=== PATIENT | male | born 1930 | race Caucasian/White ===

== ENCOUNTER 2016-05-27 16:17 | Emergency (ER) | payer OTHER ==
[~2016-05-27] VITALS: Ht 170.2 cm; Wt 73.5 kg
[2016-05-27 16:19] VITALS: BP 158/88
[2016-05-27] MEDS ORDERED: VENLAFAXINE PO (16:36)
[2016-05-27] MEDS ORDERED: LEVOTHYROXINE PO (16:36)
[2016-05-27] MEDS ORDERED: VIGA0.02 OD (17:08)
[2016-05-27] MEDS ORDERED: PROPARACAINE 0.5% OPHTH SOL 15ML OD ONE (17:15)
[2016-05-27] MEDS ORDERED: FLUORESCEIN OPHTH 1 MG STRIP OD ONE (17:15)
[2016-05-27] MEDS ORDERED: TYLE325T5 PO (17:25)
== END 2016-05-27 17:52 | disposition home or self-care (01) ==
LOC: M ED 17:40
DX: S05.01XA Injury of conjunctiva and corneal abrasion without foreign body, right eye, initial encounter (principal); X58.XXXA Exposure to other specified factors, initial encounter; Y92.099 Unspecified place in other non-institutional residence as the place of occurrence of the external cause; Y93.89 Activity, other specified; Y99.9 Unspecified external cause status

== ENCOUNTER → 2016-08-10 | Outpatient (CLI) | payer OTHER ==
[~2016-08-10] MED LIST: LEVOTHYROXINE PO; TYLE325T5 PO; VENLAFAXINE PO; VIGA0.02 OD
[2016-08-10 13:20] LABS: BASO % 0.5 % (0.0-1.0); EOS # 0.1 K/mm3 (0.0-0.50); EOS % 1.6 % (0.0-3.0); LARGE UNSTAINED CELL # 0.1 K/mm3 (0.0-0.4); LARGE UNSTAINED CELL % 1.2 % (0.0-4.0); LYMPH # 2.6 K/mm3 (1.5-4.5); LYMPH % 29.6 % (24.0-44.0); MEAN CORPUSCULAR HEMOGLOBIN 29.9 pg (27.0-33.0); MEAN CORPUSCULAR HGB CONC 33.6 g/dl (32.0-36.5); MEAN CORPUSCULAR VOLUME 88.9 fl (80.0-96.0); MONO # 0.5 K/mm3 (0.0-0.8); MONO % 5.5 % (0.0-5.0); NEUTROPHILS # 5.4 K/mm3 (1.8-7.7); NEUTROPHILS % 61.5 % (36.0-66.0); PLATELET COUNT, AUTOMATED 174 k/mm3 (150-450); RED CELL DISTRIBUTION WIDTH 13.3 % (11.5-14.5); WHITE BLOOD COUNT 8.8 K/mm3 (4.0-10.0)
[2016-08-10 13:59] LABS: ALBUMIN 3.8 GM/DL (3.2-5.2); ALBUMIN/GLOBULIN RATIO 1.31 (1.00-1.93); BILIRUBIN,TOTAL 0.6 MG/DL (0.2-1.0); CALCIUM LEVEL 8.7 MG/DL (8.8-10.2); CREATININE FOR GFR 1.55 MG/DL (0.70-1.30); FREE T4 0.92 NG/DL (0.76-1.46); GLOMERULAR FILTRATION RATE 45.4 (>35); POTASSIUM SERUM 3.8 MEQ/L (3.5-5.1); TOTAL PROTEIN 6.7 GM/DL (6.4-8.2)
== END ==
LOC: M WUC 08:48
PROVIDERS: ATTEND Emergency Medicine
DX: E03.9 Hypothyroidism, unspecified (principal)

== ENCOUNTER 2017-01-01 14:05 | Emergency (ER) | payer OTHER ==
[~2017-01-01] VITALS: Ht 182.9 cm; Wt 77.3 kg
[2017-01-01] MEDS ORDERED: GENT0.2D2 OU (14:33)
[2017-01-01] MEDS ORDERED: SYSTSOL11 OU (14:33)
[2017-01-01] MEDS ORDERED: HYDR-643 PO (14:33)
[2017-01-01] MEDS ORDERED: EPIP0.3I2 INJ (14:33)
--- NOTE | 2017-01-01 15:08 | REP ---
Noncontrast brain CT: History: Syncope. Findings: Digital lateral electrotype molder radiograph is unremarkable. Bone window settings demonstrate an intact bony calvarium. There is vascular calcification in the distal carotid arteries bilaterally. Visualized paranasal sinuses are clear. No intraorbital abnormality is seen. There is diffuse moderate cerebral atrophy. There is concordant ventricular enlargement. There is no evidence of intracranial hemorrhage. No extra-axial fluid collection is seen. No mass or midline shift is seen. No acute cortical infarction is seen. There are tiny low density areas in the basal ganglia bilaterally, one on each side. These may reflect tiny old lacunar infarcts. Impression: Tiny old lacunar infarcts. Vascular calcification, diffuse moderate atrophy. No acute intracranial abnormality. Signed by Ho Unger MD 01/01/2017 05:03 P
--- NOTE | 2017-01-01 15:08 | REP ---
Portable chest x-ray: Single view. History: Syncope. Findings: EKG monitoring electrodes overlie the chest. The lungs are symmetrically aerated. Pleural angles are sharp. Right hemidiaphragm is somewhat elevated. There is some plate-like atelectasis above it in the right lower lobe. The heart is not felt to be enlarged. Pulmonary vasculature is not increased. No significant bony abnormality. Impression: Mild plate-like atelectasis in the right lower lobe above a slightly elevated right hemidiaphragm. Otherwise no acute disease. Signed by Ho Unger MD 01/01/2017 05:03 P
[2017-01-01 15:46] LABS: BASO % 0.3 % (0.0-1.0); EOS # 0.1 10^3/uL (0.0-0.50); EOS % 0.6 % (0.0-3.0); IMMATURE GRANULOCYTE % 0.8 % (0-0); LYMPH # 1.2 10^3/uL (1.5-4.5); MEAN CORPUSCULAR HEMOGLOBIN 28.5 pg (27.0-33.0); MEAN CORPUSCULAR HGB CONC 32.4 g/dl (32.0-36.5); MEAN CORPUSCULAR VOLUME 87.9 fl (80.0-96.0); MONO # 0.5 10^3/uL (0.0-0.8); NEUTROPHILS # 7.9 10^3/uL (1.8-7.7); NEUTROPHILS % 81.3 % (36.0-66.0); PLATELET COUNT, AUTOMATED 154 10^3/uL (150-450); RED CELL DISTRIBUTION WIDTH 13.3 % (11.5-14.5); WHITE BLOOD COUNT 9.8 10^3/uL (4.0-10.0)
[2017-01-01 16:18] LABS: CALCIUM LEVEL 9.2 MG/DL (8.8-10.2); CREATININE FOR GFR 1.88 MG/DL (0.70-1.30); GLOMERULAR FILTRATION RATE 36.2 (>35)
[2017-01-01] MEDS ORDERED: LEVO75TA34 PO (17:19)
[2017-01-01] MEDS ORDERED: VENL75CA47 PO (17:19)
[2017-01-01] MEDS ORDERED: NS 500 ML IV ONE (18:15)
[2017-01-01 18:57] VITALS: BP 160/86
--- NOTE | 2017-01-01 21:15 | ECGEPIP ---
Stationary ECG Study [facility] - ED Test Date: 2017-01-01 Pat Name: REINALDO MORE Department: Room: - Gender: M Base Draw Operator: kareem : 1930 Requested By: DANNIELLE Lauren Order Number: [id number] Reading MD: Olena Narayanan Measurements Intervals [place] Rate: 56 P: 70 VA: 173 QRS: -24 QRSD: 86 T: 64 QT: 422 QTc: 408 Interpretive Statements SINUS BRADYCARDIA BORDERLINE LEFT AXIS DEVIATION MODERATE VOLTAGE CRITERIA FOR LVH, CONSIDER NORMAL VARIANT NONSPECIFIC T-WAVE ABNORMALITY NO PRIOR FOR COMPARISON Electronically Signed On 01-01-2017 21:15:21 EDT by Olena Narayanan
== END 2017-01-01 21:25 | disposition home or self-care (01) ==
LOC: M ED 14:05 → EDBD 14:05 → M ED 21:25
DX: R55 Syncope and collapse (principal); R00.1 Bradycardia, unspecified; R94.31 Abnormal electrocardiogram [ECG] [EKG]; I25.2 Old myocardial infarction; F41.9 Anxiety disorder, unspecified; F03.90 Unspecified dementia, unspecified severity, without behavioral disturbance, psychotic disturbance, mood disturbance, and anxiety; Z86.73 Personal history of transient ischemic attack (TIA), and cerebral infarction without residual deficits; C63.2 Malignant neoplasm of scrotum; Z79.899 Other long term (current) drug therapy; Z91.030 Bee allergy status

== ENCOUNTER 2017-02-05 13:49 | Emergency (ER) | payer OTHER ==
[~2017-02-05] VITALS: Ht 182.9 cm; Wt 77.3 kg
[~2017-02-05 13:49] MED LIST changes: +EPIP0.3I2 INJ; +GENT0.2D2 OU; +HYDR-643 PO; +LEVO75TA34 PO; +SYSTSOL11 OU; +VENL75CA47 PO
--- NOTE | 2017-02-05 15:27 | REP ---
CT Head without contrast HISTORY: Trauma COMPARISON: 01/01/2017 Areas of decreased attenuation are present in the basal ganglia. These represent old lacunar infarctions. Areas of decreased attenuation are present in the periventricular white matter. This represents small-vessel ischemic disease. There is no intraparenchymal hemorrhage, acute infarct, mass or midline shift. The ventricular system and cortical sulci are dilated consistent with mild volume loss. There is no extra cerebral collection. There is no fracture. The visualized sinuses are clear. IMPRESSION: 1. Old bilateral basal ganglia lacunar infarctions. 2. Small vessel ischemic disease. 3. Mild volume loss. Signed by Jason Adame MD 02/05/2017 03:18 P
--- NOTE | 2017-02-05 15:28 | REP ---
Clinical: Altered mental status. Comparison: 01/01/2017 . Findings: The mediastinum and cardiac silhouette are stable and within normal limits for portable technique. The lung farias are clear without acute consolidation, effusion, or pneumothorax. Skeletal structures are intact. Impression: No acute cardiopulmonary process appreciated. Signed by Francois López MD 02/05/2017 03:20 P
--- NOTE | 2017-02-05 15:31 | REP ---
CT cervical spine without contrast HISTORY: Trauma COMPARISON: None There is no acute fracture or subluxation. Disc bulges are present at the C3-4 and C4-5 levels. A disc bulge with associated osteophyte formation is present at the C5-6 level. There is minimal narrowing of the spinal canal. Uncinate process and/or facet hypertrophy are present at the the C3-4 through C6-7 levels. These findings produce minimal to mild narrowing of the neural foramina. The intervertebral discs and vertebral bodies are normal in height. Calcifications are present in the tonsils. This is secondary to previous inflammatory disease. IMPRESSION: 1. There is no acute fracture or subluxation. 2. There is cervical spondylosis at the C3-4 through C6-7 levels. Signed by Jason Adame MD 02/05/2017 03:22 P
[2017-02-05 15:45] LABS: BASO % 0.3 % (0.0-1.0); EOS # 0.1 10^3/uL (0.0-0.50); EOS % 0.8 % (0.0-3.0); IMMATURE GRANULOCYTE % 0.8 % (0-0); LYMPH # 1.7 10^3/uL (1.5-4.5); LYMPH % 23.2 % (24.0-44.0); MEAN CORPUSCULAR HEMOGLOBIN 29.1 pg (27.0-33.0); MEAN CORPUSCULAR HGB CONC 32.9 g/dl (32.0-36.5); MEAN CORPUSCULAR VOLUME 88.5 fl (80.0-96.0); MONO # 0.5 10^3/uL (0.0-0.8); MONO % 6.6 % (0.0-5.0); NEUTROPHILS # 4.9 10^3/uL (1.8-7.7); NEUTROPHILS % 68.3 % (36.0-66.0); PLATELET COUNT, AUTOMATED 172 10^3/uL (150-450); RED CELL DISTRIBUTION WIDTH 13.3 % (11.5-14.5); WHITE BLOOD COUNT 7.2 10^3/uL (4.0-10.0)
[2017-02-05] MEDS ORDERED: NS 500 ML IV ONE (16:00)
[2017-02-05 16:08] LABS: ALBUMIN 3.8 GM/DL (3.2-5.2); ALBUMIN/GLOBULIN RATIO 1.15 (1.00-1.93); ALKALINE PHOSPHATASE 74 U/L (45-117); ALT/SGPT 20 U/L (12-78); ANION GAP 4 MEQ/L (8-16); AST/SGOT 15 U/L (7-37); BILIRUBIN,DIRECT < 0.1 MG/DL (0.0-0.2); BILIRUBIN,TOTAL 0.4 MG/DL (0.2-1.0); BLOOD UREA NITROGEN 28 MG/DL (7-18); CALCIUM LEVEL 8.9 MG/DL (8.8-10.2); CARBON DIOXIDE LEVEL 33 MEQ/L (21-32); CHLORIDE LEVEL 105 MEQ/L (98-107); CREATININE FOR GFR 1.64 MG/DL (0.70-1.30); GLOMERULAR FILTRATION RATE 42.4 (>35); GLUCOSE, FASTING 106 MG/DL (83-110); POTASSIUM SERUM 4.3 MEQ/L (3.5-5.1); SODIUM LEVEL 142 MEQ/L (136-145); TOTAL PROTEIN 7.1 GM/DL (6.4-8.2)
[2017-02-05 17:35] VITALS: BP 180/59
--- NOTE | 2017-02-05 18:39 | ECGEPIP ---
Stationary ECG Study [facility] - ED Test Date: 2017-02-05 Pat Name: REINALDO MORE Department: Room: - Gender: M Adhesion Tester: ILANA : 1930 Requested By: JUAN CARLOS Herron Order Number: [id number] Reading MD: Raffy Cross Measurements Intervals [place] Rate: 57 P: 70 RI: 159 QRS: -31 QRSD: 90 T: 45 QT: 432 QTc: 422 Interpretive Statements SINUS BRADYCARDIA LEFT AXIS DEVIATION LEFT ATRIAL ENLARGEMENT VOLTAGE CRITERIA FOR LVH SIMILAR TO 01/01/17 Electronically Signed On 02-05-2017 18:39:43 EST by Raffy Cross
[2017-02-06] MEDS ORDERED: VITA100066 PO (14:21)
== END 2017-02-05 17:42 | disposition home or self-care (01) ==
LOC: M ED 13:49 → EDBD 13:49 → M ED 17:42
DX: S09.90XA Unspecified injury of head, initial encounter (principal); W19.XXXA Unspecified fall, initial encounter; R00.1 Bradycardia, unspecified; Y92.9 Unspecified place or not applicable; Y93.9 Activity, unspecified; Y99.9 Unspecified external cause status; M47.812 Spondylosis without myelopathy or radiculopathy, cervical region; F03.90 Unspecified dementia, unspecified severity, without behavioral disturbance, psychotic disturbance, mood disturbance, and anxiety; Z86.73 Personal history of transient ischemic attack (TIA), and cerebral infarction without residual deficits; Z79.82 Long term (current) use of aspirin; Z79.899 Other long term (current) drug therapy; Z91.030 Bee allergy status

== ENCOUNTER 2017-02-06 12:56 | Inpatient (IN) | payer OTHER ==
[~2017-02-06] VITALS: Ht 180.3 cm; Wt 74.0 kg
--- NOTE | 2017-02-06 13:57 | REP ---
Clinical: Cerebrovascular accident . Comparison: 02/05/2017. Findings: The mediastinum and cardiac silhouette are stable and within normal limits for portable technique. The lung farias are clear without acute consolidation, effusion, or pneumothorax. Skeletal structures are intact. Impression: No acute cardiopulmonary process appreciated. Signed by Francois López MD 02/06/2017 01:49 P
--- NOTE | 2017-02-06 14:01 | REP ---
CT Head without contrast HISTORY: Infarction COMPARISON: 02/05/2017 Areas of decreased attenuation are present in the basal ganglia. There has represent old lacunar infarctions. Areas of decreased attenuation are present in the periventricular white matter. This represents small-vessel ischemic disease. There is no intraparenchymal hemorrhage, acute infarct, mass or midline shift. The ventricular system and cortical sulci are dilated consistent with mild volume loss. There is no extra cerebral collection. There is no fracture. The visualized sinuses are clear. IMPRESSION: 1. Old bilateral basal ganglia lacunar infarctions. 2. Small vessel ischemic disease. 3. Mild volume loss. Signed by Jason Adame MD 02/06/2017 01:52 P
[2017-02-06 14:13] LABS: BASO % 0.3 % (0.0-1.0); EOS % 0.7 % (0.0-3.0); IMMATURE GRANULOCYTE % 0.8 % (0-0); LYMPH # 1.3 10^3/uL (1.5-4.5); LYMPH % 21.2 % (24.0-44.0); MEAN CORPUSCULAR HEMOGLOBIN 28.8 pg (27.0-33.0); MEAN CORPUSCULAR HGB CONC 32.8 g/dl (32.0-36.5); MEAN CORPUSCULAR VOLUME 87.6 fl (80.0-96.0); MONO # 0.4 10^3/uL (0.0-0.8); NEUTROPHILS # 4.2 10^3/uL (1.8-7.7); PLATELET COUNT, AUTOMATED 163 10^3/uL (150-450); RED CELL DISTRIBUTION WIDTH 13.5 % (11.5-14.5)
[2017-02-06] MEDS ORDERED: VITA100066 PO (14:21)
[2017-02-06 14:24] LABS: INR 0.96
[2017-02-06 14:40] LABS: ANION GAP 4 MEQ/L (8-16); BLOOD UREA NITROGEN 26 MG/DL (7-18); CALCIUM LEVEL 9.1 MG/DL (8.8-10.2); CARBON DIOXIDE LEVEL 31 MEQ/L (21-32); CHLORIDE LEVEL 107 MEQ/L (98-107); CREATININE FOR GFR 1.66 MG/DL (0.70-1.30); GLOMERULAR FILTRATION RATE 41.8 (>35); GLUCOSE, FASTING 97 MG/DL (83-110); POTASSIUM SERUM 4.1 MEQ/L (3.5-5.1); SODIUM LEVEL 142 MEQ/L (136-145)
[2017-02-06] MEDS ORDERED: ASPIRIN 325 MG TAB PO ONE (15:45)
[2017-02-06] MEDS ORDERED: ONDANSETRON 4MG/2ML VIAL (J2405) IV PRN (16:15)
[2017-02-06 16:35] LABS: CHOLESTEROL LEVEL 242 MG/DL (<200); TRIGLYCERIDES LEVEL 218 MG/DL (<150)
--- NOTE | 2017-02-06 17:32 | HPEPDOC ---
General Date of Admission Feb 06, 2017 at 16:12 Chief Complaint The patient is a 86-year-old male admitted with a reason for visit of Facial Droop. History of Present Illness 86-year-old male with past medical history significant for chronic kidney disease stage III, hypothyroidism, depression, anxiety, dementia, and hemorrhagic CVA 3 yrs ago presented from the [facility] after he was found to have a left-sided facial droop and left upper extremity weakness. Of note, the patient was seen in the ER just yesterday evening after sustaining a fall. The patient's history at this time is limited given the patient's underlying dementia. The majority of this history was obtained from the patient's daughter who is at the bedside. Apparently, the patient was at the facility when staff noted that he had a left-sided facial droop, left upper extremity weakness, and imbalance upon standing up. EMS was called and the patient was subsequently brought to the ER for further evaluation and management. In the ER, the patient's neurological symptoms resolved. A CT scan of the head revealed no acute findings. An EKG revealed sinus rhythm with mild bradycardia. Neurology was contacted in the ER. The patient will be admitted to the hospitalist service for further evaluation and management. Home Medications Scheduled (Systane Ultra 0.4-0.3 %) 1 Vannesa Vannesa, 1 DROP OU BID, (Reported) Cholecalciferol (Vitamin D) 1,000 Unit Tab, 1,000 UNIT PO DAILY, (Reported) Hydroxypropyl Methylcellulose (Genteal Mild) 0.2 % Jimbo, 1 DROP OU QHS, (Reported ) Levothyroxine Sodium (Levoxyl) 75 Mcg Tab, 75 MCG PO DAILY, (Reported) Venlafaxine HCl (Venlafaxine HCl ER) 75 Mg Capcr, 75 MG PO DAILY, (Reported) Scheduled PRN (Epipen 2-Ayaz) 0.3 Mg/0.3 Ml Inj, 0.3 MG INJ PRN PRN for ALLERGIC REACTION, ( Reported) Hydroxyzine HCl (Hydroxyzine HCl) 10 Mg Tab, 10 MG PO TID PRN for ANXIETY/ AGITATION, (Reported) Allergies Coded Allergies: Bee Venom (Verified Allergy, Unknown, 01/01/17) Past Medical History Medical History As noted in HPI. Social History * Smoker: Denies Alcohol: Denies Drugs: denies Patient is a resident of the [facility] Review of Symptoms Other systems Unable to fully obtain due to the patient's baseline dementia Physical Examination General Exam: Positive: Alert, No Acute Distress ENT Exam: Positive: Mucous membr. moist/pink, Other ENT (patient does have a contusion over the left eye from a recent fall) Neck Exam: Negative: JVD Chest Exam: Positive: Clear to auscultation, Normal air movement Heart Exam: Positive: Rate Normal, Normal S1, Normal S2 Telemetry: Positive: Sinus Abdomen Exam: Positive: Soft, Negative: Tenderness Extremity Exam: Negative: Tenderness, Swelling Vital Signs Vital Signs Date Time Temp Pulse Resp B/P (MAP) Pulse Ox O2 Delivery O2 Flow Rate FiO2 02/06/17 15:30 61 175/81 (112) 98 02/06/17 13:09 98.5 20 Room Air Laboratory Data Labs 24H Laboratory Tests 2 02/06/17 14:06: Immature Granulocyte % (Auto) 0.8H, White Blood Count 6.0, Red Blood Count 5.42 , Hemoglobin 15.6, Hematocrit 47.5, Mean Corpuscular Volume 87.6, Mean Corpuscular Hemoglobin 28.8, Mean Corpuscular Hemoglobin Concent 32.8, Red Cell Distribution Width 13.5, Platelet Count 163, Neutrophils (%) (Auto) 70.0H, Lymphocytes (%) (Auto) 21.2L, Monocytes (%) (Auto) 7.0H, Eosinophils (%) (Auto) 0.7, Basophils (%) (Auto) 0.3, Neutrophils # (Auto) 4.2, Lymphocytes # (Auto) 1.3L, Monocytes # (Auto) 0.4, Eosinophils # (Auto) 0.0, Basophils # (Auto) 0.0, Immature Granulocyte # (Auto) 0.1H, Nucleated Red Blood Cells % (auto) 0.0, Prothrombin Time 12.8, Prothromb Time International Ratio 0.96, Activated Partial Thromboplast Time 31.6, Anion Gap 4L, Glomerular Filtration Rate 41.8, Estimated Mean Plasma Glucose 123H, Hemoglobin A1c 5.9, Blood Urea Nitrogen 26H , Creatinine 1.66H, Sodium Level 142, Potassium Level 4.1, Chloride Level 107, Carbon Dioxide Level 31, Calcium Level 9.1, Total Creatine Kinase 46, Creatine Kinase MB 1.5, Creatine Kinase MB Relative Index 3.26, Troponin I < 0.02, Triglycerides Level 218H, LDL Cholesterol 157.4H, Total Cholesterol 242H, Non- HDL Cholesterol (LDL + VLDL) 201, Total HDL Cholesterol 41, Cholesterol/HDL Ratio 5.902H CBC/BMP Laboratory Tests 02/06/17 14:06 Red Blood Count 5.42, Mean Corpuscular Volume 87.6, Mean Corpuscular Hemoglobin 28.8, Mean Corpuscular Hemoglobin Concent 32.8, Red Cell Distribution Width 13.5 , Neutrophils (%) (Auto) 70.0 H, Lymphocytes (%) (Auto) 21.2 L, Monocytes (%) ( Auto) 7.0 H, Eosinophils (%) (Auto) 0.7, Basophils (%) (Auto) 0.3, Neutrophils # (Auto) 4.2, Lymphocytes # (Auto) 1.3 L, Monocytes # (Auto) 0.4, Eosinophils # (Auto) 0.0, Basophils # (Auto) 0.0, Calcium Level 9.1, Total Creatine Kinase 46 Plan / VTE VTE Prophylaxis Ordered?: Yes Plan Plan Transient Ischemic Attack CT Head with no acute findings Neurological deficits resolved in the ER MRI/MRA Brain, US Carotids, and 2D ECHO ordered Neurology contacted in the ER-->recommended ASA 325 mg (However, we will hold off at this time as the patient does have a ?history of Hemorrhagic CVA 3 years ago--order to obtain records from [facility] placed.) Lipid panel, hemoglobin A1c levels ordered We will start the patient on atorvastatin 20 mg Physical therapy, occupational therapy Continue with neurological checks ?History of Hemorrhagic CVA 3 years ago Order to obtain records from [facility] placed Chronic kidney disease stage III Serum Cr appears to be at baseline Depression/anxiety Continue venlafaxine, hydroxyzine when necessary Hypothyroidism Continue levothyroxine DVT prophylaxis SCDs/TEDs The patient will be admitted under the service of Dr. Glasgow, who will begin to follow the patient on 02/07/17 at 7 AM. ADY ALEXANDER MD Feb 06, 2017 17:32
[2017-02-06 19:57] VITALS: BP 148/84
[2017-02-06 23:45] VITALS: BP 248/104
[2017-02-07] VITALS (10 sets, daily range): BP systolic 144–234; BP diastolic 73–104
[2017-02-07] MEDS ORDERED: hydrALAZINE INJ 20 MG/ML VIAL IV ONE ×2 (01:45)
[2017-02-07] MEDS: ACETAMINOPHEN TAB 650MG DOSE (2X325MG) PO PRN (03:21)
[2017-02-07] MEDS: LEVOTHYROXINE 75MCG TABLET (0.075MG) PO SCH (05:09)
[2017-02-07] MEDS: hydrALAZINE INJ 20 MG/ML VIAL IV PRN (05:11)
[2017-02-07 07:18] LABS: MEAN CORPUSCULAR HEMOGLOBIN 28.8 pg (27.0-33.0); MEAN CORPUSCULAR HGB CONC 33.6 g/dl (32.0-36.5); MEAN CORPUSCULAR VOLUME 85.8 fl (80.0-96.0); PLATELET COUNT, AUTOMATED 159 10^3/uL (150-450); RED CELL DISTRIBUTION WIDTH 13.3 % (11.5-14.5)
[2017-02-07 07:42] LABS: ALBUMIN 3.6 GM/DL (3.2-5.2); ALBUMIN/GLOBULIN RATIO 1.03 (1.00-1.93); BILIRUBIN,TOTAL 0.8 MG/DL (0.2-1.0); CALCIUM LEVEL 8.8 MG/DL (8.8-10.2); CREATININE FOR GFR 1.42 MG/DL (0.70-1.30); GLOMERULAR FILTRATION RATE 50.1 (>35); POTASSIUM SERUM 3.9 MEQ/L (3.5-5.1); TOTAL PROTEIN 7.1 GM/DL (6.4-8.2)
--- NOTE | 2017-02-07 08:09 | ECGEPIP ---
Stationary ECG Study [facility] - ED Test Date: 2017-02-06 Pat Name: REINALDO MORE Department: Room: [place] [address] Gender: M Quantitative Manager: ILANA : 1930 Requested By: YING Mcdonald Order Number: [id number] Reading MD: Olena Narayanan Measurements Intervals [place] Rate: 61 P: 66 TX: 166 QRS: -27 QRSD: 86 T: 45 QT: 416 QTc: 421 Interpretive Statements SINUS RHYTHM BORDERLINE LEFT AXIS DEVIATION VOLTAGE CRITERIA FOR LVH SIMILAR 02/05/17 Electronically Signed On 02-07-2017 8:09:52 EST by Olena Narayanan
--- NOTE | 2017-02-07 08:36 | REP ---
Duplex carotid sonography: History: CVA. No comparison study. Findings: Antegrade flow was observed in the left vertebral artery. The right vertebral artery was not seen. Right carotid: There is diffuse intimal thickening. Mild plaquing is seen in the proximal ICA and bulb on the right side on two-dimensional scanning. Color flow and spectral Doppler interrogation are unremarkable on the right. Velocity chart right carotid: Right CCA PSV 54 cm/s Right ICA PSV 68 EDV 10 Right ECA PSV 93 Right ICA/CCA ratio normal 1.3 IMPRESSION: 16-49% category narrowing the right ICA by Doppler velocity criteria. Left carotid: There is diffuse intimal thickening in the left common carotid artery. There is mild mixed plaquing in the bulb and proximal ICA on the left side. Color flow and spectral Doppler interrogation are unremarkable on the left. Velocity chart left carotid: Left CCA PSV 63 cm/s Left ICA PSV 67 EDV 11 Left ECA PSV 88 Left ICA/CCA ratio normal 1.1 Impression: 16 49% category narrowing in the left ICA by Doppler velocity criteria. Signed by Ho Unger MD 02/07/2017 11:17 A
[2017-02-07] MEDS: VENLAFAXINE **XR** 75MG CAPSULE PO SCH (09:03)
[2017-02-07] MEDS: ATORVASTATIN 20 MG TAB PO SCH (09:03)
[2017-02-07] MEDS: VITAMIN D 1,000 INTERNATIONAL UNITS TABLET PO SCH (09:03)
[2017-02-07] MEDS ORDERED: hydrOXYzine 25 MG TAB PO ONE (13:15)
[2017-02-07] MEDS: hydrOXYzine 10 MG TAB PO PRN (16:00)
[2017-02-07] MEDS ORDERED: LORazepam 2 MG/ML VIAL (J2060) IV ONE (16:30)
[2017-02-07] MEDS ORDERED: risperiDONE 0.5 MG TAB PO ONE (19:00)
--- NOTE | 2017-02-07 20:55 | IPN ---
DATE: 02/07/2017 SUBJECTIVE: The patient seen and examined in the room today. During the encounter the patient is completely not oriented. He does not even know he is in the hospital. He does not know the year. A lot of information was obtained from patient's daughter who is present during the encounter. Per the patient's daughter, the patient has a history of hemorrhagic stroke three years ago and was hospitalized in another facility. At baseline the patient does have dementia. Currently, the patient's daughter feels the patient has deterioration from his baseline. She was told that the patient had left facial droop and weakness of the left upper extremities in the assisted living facility. The patient had another episode of left facial droop and left upper extremity while the patient was in the ambulance. OBJECTIVE: VITAL SIGNS: Temperature is 97.6, pulse is 63, respirations 18, blood pressure is 177/84, pulse oximetry 97% on room air. GENERAL: The patient is alert and awake, but is not oriented. HEENT: Normocephalic, atraumatic. Extraocular movements grossly intact. CARDIOVASCULAR: Positive S1, S2, regular rate. LUNGS: Clear to auscultation bilaterally. ABDOMEN: Soft, nontender. Bowel sounds present. EXTREMITIES: No edema. No cyanosis. NEUROLOGICAL: Unable to test due to patient not able to answer questions properly. LABORATORY DATA: WBC 11, hemoglobin 15.6, hematocrit 46.4, platelet count is 159. Sodium is 139, potassium 3.9, chloride 105, carbon dioxide 26, BUN 26, creatinine 1.42. GFR is 50.1. Fasting glucose 109. Calcium 8.8. Magnesium 2, total bilirubin 0.8, AST 22, ALT is 18. Alkaline phosphatase is 69. Total protein 7.1. ASSESSMENT AND PLAN: 1. Transient ischemic attack. Initially MR/MRA was ordered, however, due to patient's frequent movements the imaging study was not performed. 2D echo was ordered, will follow with the results. Neurology is being consulted. At the moment due to history of hemorrhagic stroke, the patient is not on aspirin. Will follow with neurology recommendations. 2. History of hemorrhagic stroke three years ago. Order to obtain records from [facility] is being placed. Will continue to follow. 3. Baseline dementia. Currently the patient has constant agitation and abnormal behaviors. According to the patient's daughter this is acute decrease from patient's baseline. When addressing the concern for possible placement, the patient daughter denies a recommendation. She feels the patient will benefit to stay at home. Usually the patient will have increased alter mental status while the patient is in the hospital. She feels when patient goes back to his familiar environment his mentation will gradually improve. 4. History of anxiety and depression, on venlafaxine. 5. Hypothyroidism. On Synthroid. 6. Deep venous thrombosis (DVT) prophylaxis. On TEDs and sequential compression devices.
[2017-02-07] MEDS: LORazepam 2 MG/ML VIAL (J2060) IV PRN (22:22)
[2017-02-08] VITALS (7 sets, daily range): BP systolic 142–186; BP diastolic 68–89
[2017-02-08] MEDS: LEVOTHYROXINE 75MCG TABLET (0.075MG) PO SCH (05:50)
[2017-02-08 06:17] LABS: MEAN CORPUSCULAR HEMOGLOBIN 28.6 pg (27.0-33.0); MEAN CORPUSCULAR HGB CONC 33.2 g/dl (32.0-36.5); MEAN CORPUSCULAR VOLUME 86.3 fl (80.0-96.0); PLATELET COUNT, AUTOMATED 152 10^3/uL (150-450); RED CELL DISTRIBUTION WIDTH 13.4 % (11.5-14.5); WHITE BLOOD COUNT 7.1 10^3/uL (4.0-10.0)
[2017-02-08 06:27] LABS: ALBUMIN 3.3 GM/DL (3.2-5.2); BILIRUBIN,TOTAL 0.9 MG/DL (0.2-1.0); CALCIUM LEVEL 8.6 MG/DL (8.8-10.2); CREATININE FOR GFR 1.46 MG/DL (0.70-1.30); GLOMERULAR FILTRATION RATE 48.5 (>35); POTASSIUM SERUM 3.5 MEQ/L (3.5-5.1); TOTAL PROTEIN 6.6 GM/DL (6.4-8.2)
[2017-02-08] MEDS: risperiDONE 0.5 MG TAB PO SCH ×2 (09:58→20:58)
[2017-02-08] MEDS: ASPIRIN 81 MG ENTERIC TAB PO SCH (09:58)
[2017-02-08] MEDS: VITAMIN D 1,000 INTERNATIONAL UNITS TABLET PO SCH (09:58)
[2017-02-08] MEDS: ATORVASTATIN 20 MG TAB PO SCH (09:58)
[2017-02-08] MEDS: VENLAFAXINE **XR** 75MG CAPSULE PO SCH (15:14)
--- NOTE | 2017-02-08 17:09 | REP ---
MRA BRAIN WITHOUT CONTRAST: HISTORY: Infarction. 3D TOF MR angiography of was performed at the level of the [place] of [place]. There is no aneurysm or arteriovenous malformation. Mild atherosclerotic disease involves the cavernous and supraclinoid internal carotid arteries, basilar artery and right middle cerebral artery trifurcation. Moderate atherosclerotic disease involves the left middle cerebral artery trifurcation and left posterior cerebral artery. Major intracranial vessels are patent. There is loss of normal hyperintense signal in the right vertebral artery. This is secondary to occlusion, stenosis or hypoplasia. IMPRESSION: 1. There is no aneurysm or arteriovenous malformation. 2. Atherosclerotic disease as described above. Signed by Jason Adame MD 02/09/2017 08:40 A
--- NOTE | 2017-02-08 18:27 | IPNPDOC ---
Text Note Date of Service The patient was seen on 02/08/17. NOTE SUBJECTIVE: The patient seen and examined in the room today. Patient is sleeping in the room. It has been very difficult to wake the patient up. OBJECTIVE: VITAL SIGNS: Listed below. GENERAL: The patient is very sleepy. Not able to follow many commend.s HEENT: Normocephalic, atraumatic. Extraocular movements grossly intact. CARDIOVASCULAR: Positive S1, S2, regular rate. LUNGS: Clear to auscultation bilaterally. ABDOMEN: Soft, nontender. Bowel sounds present. EXTREMITIES: No edema. No cyanosis. LABORATORY DATA: Listed below. ASSESSMENT AND PLAN: 1. Transient ischemic attack. Initially MR/MRA was ordered, however, due to patient's frequent movements the imaging study was not performed. 2D echo was ordered, will follow with the results. Neurology is being consulted. Will follow with neurology recommendations. Patient is less agitated compared to yesterday. Will proceed with MRI/MRA. 2. History of hemorrhagic stroke three years ago. Order to obtain records from [facility] is being placed. Will continue to follow. 3. Baseline dementia. Currently the patient has constant agitation and abnormal behaviors. According to the patient's daughter this is acute decrease from patient's baseline. When addressing the concern for possible placement, the patient daughter denies a recommendation. She feels the patient will benefit to stay at home. Usually the patient will have increased alter mental status while the patient is in the hospital. She feels when patient goes back to his familiar environment his mentation will gradually improve. 4. History of anxiety and depression, on venlafaxine. 5. Hypothyroidism. On Synthroid. 6. Deep venous thrombosis (DVT) prophylaxis. On TEDs and sequential compression devices. VS,Fishbone, I+O VS, Fishbone, I+O Laboratory Tests 02/08/17 05:59 Red Blood Count 4.89, Mean Corpuscular Volume 86.3, Mean Corpuscular Hemoglobin 28.6, Mean Corpuscular Hemoglobin Concent 33.2, Red Cell Distribution Width 13.4 , Calcium Level 8.6 L, Aspartate Amino Transf (AST/SGOT) 21, Alanine Aminotransferase (ALT/SGPT) 16, Alkaline Phosphatase 65, Total Bilirubin 0.9, Total Protein 6.6, Albumin 3.3 Vital Signs Date Time Temp Pulse Resp B/P (MAP) Pulse Ox O2 Delivery O2 Flow Rate FiO2 02/08/17 17:36 97.5 77 18 144/78 (100) 95 Room Air I&O- Last 24 Hours up to 6 AM 02/09/17 06:00 Intake Total 200 ml Output Total 250 ml Balance -50 ml NATASHA FAUST DO Feb 08, 2017 18:27
--- NOTE | 2017-02-08 20:10 | REPUSA ---
MRI of the brain. Clinical history: slurred speech. Technique: Multiecho multiplanar MRI images of the brain were obtained without administration of cont rast. Diffusion weighted images with ADC mapping was also obtained. Findings: The ventricles and sulci are symmetric but prominent in size bilaterally. The brain parenchyma demons trates periventricular and subcortical white matter T2 hyperintensity changes. There is no midline sh ift, mass effect, or extra-axial fluid collection. The midline intracranial structures do not demonst rate any gross abnormalities. The cervical cranial junction is intact. The orbits are unremarkable. T he visualized paranasal sinuses and mastoid air cells are clear. The osseous structures and superfici al soft tissues are unremarkable. The vascular structures demonstrate appropriate flow voids. Impression: No evidence of acute infarct or hemorrhage. Moderate age-related atrophy and chronic smal l vessel ischemic disease.
[2017-02-08] MEDS: LORazepam 2 MG/ML VIAL (J2060) IV PRN (21:57)
[2017-02-09] VITALS: BP 142/68
[2017-02-09] MEDS: hydrOXYzine 10 MG TAB PO PRN (05:36)
[2017-02-09] MEDS: LEVOTHYROXINE 75MCG TABLET (0.075MG) PO SCH (05:36)
--- NOTE | 2017-02-09 06:55 | CR ---
DATE OF CONSULTATION: 02/07/2017 REFERRING PHYSICIAN: Dr. Victoria Glasgow REASON FOR CONSULTATION: Left-sided facial and arm weakness. HISTORY OF PRESENT ILLNESS: Rm Mclain is an 86-year-old man with history of chronic kidney disease, depression, dementia, history of hemorrhagic stroke in 2013 when he was admitted in [place], [place], and was discharged to [facility]. He was brought to [facility] after he was found to have left-sided facial and arm weakness. The patient had fallen the day prior to admission this time. He was seen in the emergency department. The patient is unable to provide any meaningful history. Most of the information was obtained from the patient's daughter. The patient has not had hallucinations. He has mild tremor of his hands. He was seen by a neurologist three years ago and was told that he does not have dementia. The patient is currently hallucinating and talking to himself randomly without making any sense. He is having conversations about his past events. He is confused. He is unable to follow commands. There are no reports of headaches, neck or back pain. There are no reports of dysphagia, dysarthria, diplopia or loss of consciousness. PAST MEDICAL HISTORY: 1. Dementia. 2. History of hemorrhagic stroke. 3. Hypothyroidism. 4. Depression. CURRENT MEDICATIONS: - vitamin D 1000 units daily - levothyroxine 75 mcg by mouth daily - Effexor XR 75 mg by mouth daily - hydroxyzine 10 mg by mouth three times a day as needed ALLERGIES: - BEE VENOM SOCIAL HISTORY: He lives at [facility]. There are no reports of smoking, alcohol or illicit drugs. FAMILY HISTORY: Noncontributory. REVIEW OF SYSTEMS: All systems were reviewed and found to be noncontributory except as mentioned in history of present illness. PHYSICAL EXAMINATION: Blood pressure 156/73, 97% saturation on room air, temperature 98.3, pulse 65, respiratory rate 18. Heart: Regular rate and rhythm. Lungs: Clear to auscultation. No pedal edema. No fractures. No rash. He has a mild tremor at rest of both hands. No signs of meningeal irritation. Ear, nose and throat examination is within normal limits. The patient is awake, alert, but oriented to himself only. He cannot follow one-step commands. He is talking to himself about various past events without making any sense. Extraocular muscles are intact. No facial weakness. Tongue and uvula are midline. He is able to move all four extremities. Plantars are downgoing. Deep tendon reflexes are 1+ in arms and absent in legs. Sensory and cerebellar exams could not be performed. Gait could not be tested. DIAGNOSTIC STUDIES: CT scan of head showed small vessel ischemic disease of brain and bilateral basal ganglia lacunar strokes. Carotid ultrasound showed 16-49% left internal carotid artery stenosis. CBC and metabolic panel are within normal limits. ASSESSMENT: 1. Suspected transient ischemic attack. 2. Delirium. 3. Suspected Alzheimer's or Lewy body dementia. 4. History of hemorrhagic stroke in 2014. PLAN: 1. MRI of brain. 2. Avoid benzodiazepines and anticholinergic medicines like hydroxyzine as they can make him more confused. 3. Risperdal 0.5 mg by mouth twice a day. 4. Aspirin 81 mg by mouth daily. 5. Follow with our office in 1 month after hospital discharge.
[2017-02-09 07:32] LABS: MEAN CORPUSCULAR HEMOGLOBIN 28.9 pg (27.0-33.0); MEAN CORPUSCULAR HGB CONC 33.3 g/dl (32.0-36.5); MEAN CORPUSCULAR VOLUME 86.9 fl (80.0-96.0); PLATELET COUNT, AUTOMATED 153 10^3/uL (150-450); RED CELL DISTRIBUTION WIDTH 13.3 % (11.5-14.5); WHITE BLOOD COUNT 8.3 10^3/uL (4.0-10.0)
[2017-02-09 08:00] VITALS: BP 170/88
[2017-02-09 08:00] LABS: ALBUMIN 3.5 GM/DL (3.2-5.2); BILIRUBIN,TOTAL 0.6 MG/DL (0.2-1.0); CALCIUM LEVEL 9.2 MG/DL (8.8-10.2); CREATININE FOR GFR 1.36 MG/DL (0.70-1.30); GLOMERULAR FILTRATION RATE 52.6 (>35); POTASSIUM SERUM 3.8 MEQ/L (3.5-5.1)
[2017-02-09] MEDS: VITAMIN D 1,000 INTERNATIONAL UNITS TABLET PO SCH (08:08)
[2017-02-09] MEDS: ATORVASTATIN 20 MG TAB PO SCH (08:08)
[2017-02-09] MEDS: LORazepam 2 MG/ML VIAL (J2060) IV PRN (08:08)
[2017-02-09] MEDS: ASPIRIN 81 MG ENTERIC TAB PO SCH (08:08)
[2017-02-09] MEDS: risperiDONE 0.5 MG TAB PO SCH (08:10)
[2017-02-09] MEDS: VENLAFAXINE **XR** 75MG CAPSULE PO SCH (10:01)
[2017-02-09] MEDS: HALOPERIDOL 5 MG/ML VIAL (J1630) IM PRN ×2 (11:45→20:22)
[2017-02-09 12:00] VITALS: BP 194/95
[2017-02-09 16:00] VITALS: BP 141/86
--- NOTE | 2017-02-09 17:08 | IPNPDOC ---
Text Note Date of Service The patient was seen on 02/09/17. NOTE SUBJECTIVE: The patient seen and examined in the room today. Patient has been very agitated. Patient is in acute delirium. OBJECTIVE: VITAL SIGNS: Listed below. GENERAL: The patient is very agitated. Not able to follow many commends HEENT: Normocephalic, atraumatic. Extraocular movements grossly intact. CARDIOVASCULAR: Positive S1, S2, regular rate. LUNGS: Clear to auscultation bilaterally. ABDOMEN: Soft, nontender. Bowel sounds present. EXTREMITIES: No edema. No cyanosis. LABORATORY DATA: Listed below. ASSESSMENT AND PLAN: 1. Acute delirium. Patient has been on risperidone 0.5mg PO BID. Symptoms are not controlled. Discussed with neurologist. Start hadol 1mg IM BID PRN. Ativan and hydroxyzine are discontinued per recommendation. 2. Transient ischemic attack. Initially MR/MRA was ordered, however, due to patient's frequent movements the imaging study was not performed previously. MRI /MRA resulted no significant findings. 2D echo was ordered, will follow with the results. Neurology is being consulted. Will follow with neurology recommendations. 3. History of hemorrhagic stroke three years ago. Order to obtain records from [facility] is being placed. Will continue to follow. 4. Baseline dementia. Currently the patient has constant agitation and abnormal behaviors. According to the patient's daughter this is acute decrease from patient's baseline. 5. History of anxiety and depression, on venlafaxine. 6. Hypothyroidism. On Synthroid. 7. Deep venous thrombosis (DVT) prophylaxis. On TEDs and sequential compression devices. VS,Fishbone, I+O VS, Fishbone, I+O Laboratory Tests 02/09/17 07:14 Red Blood Count 5.19, Mean Corpuscular Volume 86.9, Mean Corpuscular Hemoglobin 28.9, Mean Corpuscular Hemoglobin Concent 33.3, Red Cell Distribution Width 13.3 , Calcium Level 9.2, Aspartate Amino Transf (AST/SGOT) 33, Alanine Aminotransferase (ALT/SGPT) 22, Alkaline Phosphatase 75, Total Bilirubin 0.6, Total Protein 7.0, Albumin 3.5 Vital Signs Date Time Temp Pulse Resp B/P (MAP) Pulse Ox O2 Delivery O2 Flow Rate FiO2 02/09/17 12:00 98.7 95 18 194/95 (128) 95 Room Air I&O- Last 24 Hours up to 6 AM 02/10/17 06:00 Intake Total 0 ml Output Total 0 ml Balance 0 ml NATASHA FAUST DO Feb 09, 2017 17:08
[2017-02-09] MEDS ORDERED: HALOPERIDOL 5 MG/ML VIAL (J1630) IM PRN (17:45)
[2017-02-09] MEDS: QUEtiapine FUMARATE 25 MG TAB PO SCH (18:20)
[2017-02-09 20:00] VITALS: BP 179/90
[2017-02-09] MEDS: hydrALAZINE INJ 20 MG/ML VIAL IV PRN (20:22)
[2017-02-10] VITALS: BP 171/92
[2017-02-10 04:00] VITALS: BP 162/74
[2017-02-10 05:34] LABS: MEAN CORPUSCULAR HEMOGLOBIN 28.9 pg (27.0-33.0); MEAN CORPUSCULAR HGB CONC 33.6 g/dl (32.0-36.5); PLATELET COUNT, AUTOMATED 161 10^3/uL (150-450); RED CELL DISTRIBUTION WIDTH 13.2 % (11.5-14.5); WHITE BLOOD COUNT 8.8 10^3/uL (4.0-10.0)
[2017-02-10 06:04] LABS: ALBUMIN 3.5 GM/DL (3.2-5.2); CALCIUM LEVEL 9.2 MG/DL (8.8-10.2); CREATININE FOR GFR 1.42 MG/DL (0.70-1.30); GLOMERULAR FILTRATION RATE 50.1 (>35); POTASSIUM SERUM 3.6 MEQ/L (3.5-5.1)
[2017-02-10 06:31] LABS: BILIRUBIN,TOTAL 1.2 MG/DL (0.2-1.0)
[2017-02-10] MEDS: LEVOTHYROXINE 75MCG TABLET (0.075MG) PO SCH (06:31)
--- NOTE | 2017-02-10 07:15 | ECHO ---
DATE OF PROCEDURE: 02/07/2017 DATE OF : 1930 AGE: 86. REFERRING PROVIDER: Dr. Ric Gomez PATIENT LOCATION: Room 3229. REASON FOR THE ECHOCARDIOGRAM: CVA. 2-D MEASUREMENTS: IVS: 1.3 cm LV: 4.4 cm LVPW: 1.2 cm LA: 3.7 cm Aorta: 3.4 cm RV: 3.1 cm DOPPLER MEASUREMENTS: Maximum velocity across the tricuspid valve: 2.8 m/s Mitral E: 0.46, Mitral A: 0.96 with a ratio of less than 1.0 2-D COMMENTS: 1. Technically limited study due to poor acoustic window. 2. The left ventricular size appeared to be normal with mildly increased left ventricular wall thickness. Left ventricular systolic function is normal, estimated at 60-65%. 2. The left atrium appeared to be normal as well as the right atrium and the right ventricle. 3. The atrial septum appeared to be normal without evidence of defect or shunt. 4. Normal aortic root. 5. Trace pericardial effusion noted, no evidence of cardiac tamponade. 6. Mildly calcified aortic valve with normal leaflet excursion. Normal mitral valve and tricuspid valve. The pulmonic valve and proximal pulmonary artery branches were not well visualized. 7. The inferior vena cava was not visualized. DOPPLER: It detects mild mitral regurgitation and mild to moderate tricuspid regurgitation. The calculated pulmonary artery systolic pressure varied between 30-40 mmHg. Abnormal relaxation pattern was noted across the mitral valve leaflets consistent with impaired relaxation. IMPRESSION: 1. Technically limited study due to poor acoustic window. 2. Normal global left ventricular systolic function. There were features of left ventricular diastolic dysfunction, grade 1. 3. Aortic valve sclerosis without stenosis or aortic regurgitation. 4. Mild mitral regurgitation. 5. Mild to moderate tricuspid regurgitation with mild pulmonary hypertension. 6. Trace pericardial effusion. MTDD
[2017-02-10 08:45] VITALS: BP 150/78
[2017-02-10] MEDS: VENLAFAXINE **XR** 75MG CAPSULE PO SCH (09:00)
[2017-02-10] MEDS: ASPIRIN 81 MG ENTERIC TAB PO SCH (09:00)
[2017-02-10] MEDS: ATORVASTATIN 20 MG TAB PO SCH (09:00)
[2017-02-10] MEDS: VITAMIN D 1,000 INTERNATIONAL UNITS TABLET PO SCH (09:00)
[2017-02-10 11:48] VITALS: BP 156/80
[2017-02-10 16:00] VITALS: BP 150/70
--- NOTE | 2017-02-10 19:27 | IPNPDOC ---
Text Note Date of Service The patient was seen on 02/10/17. NOTE SUBJECTIVE: The patient seen and examined in the room today. Patient has been very agitated. Patient has been in acute delirium until 3AM. Patient was filially able to calm down afterward. OBJECTIVE: VITAL SIGNS: Listed below. GENERAL: The patient is very agitated. Not able to follow many commends HEENT: Normocephalic, atraumatic. Extraocular movements grossly intact. CARDIOVASCULAR: Positive S1, S2, regular rate. LUNGS: Clear to auscultation bilaterally. ABDOMEN: Soft, nontender. Bowel sounds present. EXTREMITIES: No edema. No cyanosis. LABORATORY DATA: Listed below. ASSESSMENT AND PLAN: 1. Acute delirium. Discussed with neurologist. Ativan and hydroxyzine are discontinued per recommendation. Patient is on Effexor, haldo, and Seroquel. 2. Transient ischemic attack. Initially MR/MRA was ordered, however, due to patient's frequent movements the imaging study was not performed previously. MRI /MRA resulted no significant findings. 2D echo was ordered, will follow with the results. Neurology is being consulted. Will follow with neurology recommendations. 3. History of hemorrhagic stroke three years ago. Order to obtain records from [facility] is being placed. Will continue to follow. 4. Baseline dementia. Currently the patient has constant agitation and abnormal behaviors. According to the patient's daughter this is acute decrease from patient's baseline. 5. History of anxiety and depression, on venlafaxine. 6. Hypothyroidism. On Synthroid. 7. Deep venous thrombosis (DVT) prophylaxis. On TEDs and sequential compression devices. VS,Fishbone, I+O VS, Fishbone, I+O Laboratory Tests 02/10/17 05:21 Red Blood Count 5.23, Mean Corpuscular Volume 86.0, Mean Corpuscular Hemoglobin 28.9, Mean Corpuscular Hemoglobin Concent 33.6, Red Cell Distribution Width 13.2 , Calcium Level 9.2, Aspartate Amino Transf (AST/SGOT) 45 H, Alanine Aminotransferase (ALT/SGPT) 23, Alkaline Phosphatase 77, Total Bilirubin 1.2 #H , Total Protein 7.0, Albumin 3.5 Vital Signs Date Time Temp Pulse Resp B/P (MAP) Pulse Ox O2 Delivery O2 Flow Rate FiO2 02/10/17 16:00 99.3 72 20 150/70 (96) 93 Room Air I&O- Last 24 Hours up to 6 AM 02/11/17 06:00 Intake Total 60 ml Output Total 0 ml Balance 60 ml NATASHA FAUST DO Feb 10, 2017 19:27
[2017-02-10 20:00] VITALS: BP 189/77
[2017-02-10] MEDS: QUEtiapine FUMARATE 25 MG TAB PO SCH (21:32)
[2017-02-11] VITALS: BP 104/53
[2017-02-11 04:00] VITALS: BP 129/86
[2017-02-11 04:09] LABS: MEAN CORPUSCULAR HEMOGLOBIN 28.8 pg (27.0-33.0); MEAN CORPUSCULAR HGB CONC 32.7 g/dl (32.0-36.5); MEAN CORPUSCULAR VOLUME 87.9 fl (80.0-96.0); PLATELET COUNT, AUTOMATED 172 10^3/uL (150-450); RED CELL DISTRIBUTION WIDTH 13.3 % (11.5-14.5); WHITE BLOOD COUNT 9.2 10^3/uL (4.0-10.0)
[2017-02-11 04:40] LABS: ALBUMIN 3.6 GM/DL (3.2-5.2); ALBUMIN/GLOBULIN RATIO 0.97 (1.00-1.93); BILIRUBIN,TOTAL 0.8 MG/DL (0.2-1.0); CREATININE FOR GFR 1.84 MG/DL (0.70-1.30); GLOMERULAR FILTRATION RATE 37.1 (>35); TOTAL PROTEIN 7.3 GM/DL (6.4-8.2)
[2017-02-11] MEDS: LEVOTHYROXINE 75MCG TABLET (0.075MG) PO SCH (05:38)
[2017-02-11 08:00] VITALS: BP 134/64
[2017-02-11] MEDS ORDERED: NS 1,000 ML IV SCH (08:00)
[2017-02-11] MEDS: VITAMIN D 1,000 INTERNATIONAL UNITS TABLET PO SCH (09:37)
[2017-02-11] MEDS: ATORVASTATIN 20 MG TAB PO SCH (09:37)
[2017-02-11] MEDS: VENLAFAXINE **XR** 75MG CAPSULE PO SCH (09:37)
[2017-02-11] MEDS: ASPIRIN 81 MG ENTERIC TAB PO SCH (09:37)
[2017-02-11 12:00] VITALS: BP 114/59
[2017-02-11 16:00] VITALS: BP 121/58
--- NOTE | 2017-02-11 16:19 | IPNPDOC ---
Text Note Date of Service The patient was seen on 02/11/17. 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 In the ER the patient's symptoms had resolved. Patient received imaging that was negative for any acute CVA. Throughout the hospital course patient has had delirium and has had his medications adjusted. Patient was seen and examined at the bedside. He is oriented only to person. He does not have any complaints this morning. Objective: Vitals (See below) General: Lying in bed, no acute distress, comfortable, AAOx3 HEENT: NC, AT CVS: RRR, +S1S2 Lungs: Fair air entry b/l, -w/r/r Abdomen: Soft, ND, NT Extremities: - Edema, - Calf tenderness Assessment and plan: AMS - likely 2/2 Delirium, possibly 2/2 worsening dementia - Presented after he had left-sided facial droop and left upper extremity weakness - Symptoms had resolved upon presentation to the emergency room - Has been noted to have episodes of delirium and agitation throughout hospital course - Neurology has been consulted; appreciate their input - c/w Haldol IM, quetiapine TIA - Has had full resolution of his symptoms - MRI/MRA head noted - Continue with aspirin 81, atorvastatin 20 Hemophagic CVA (3 years prior) CKD3 - Baseline creatinine is approximately 1.5-1.8 - Mild elevation in creatinine this morning - Will give gentle IV fluid hydration Hypothyroidism - c/w levothyroxine Depression / Anxiety - Continue with venlafaxine DVT prophylaxis - c/w SCDs VS,Fishbone, I+O VS, Fishbone, I+O Laboratory Tests 02/11/17 03:38 Red Blood Count 5.39, Mean Corpuscular Volume 87.9, Mean Corpuscular Hemoglobin 28.8, Mean Corpuscular Hemoglobin Concent 32.7, Red Cell Distribution Width 13.3 , Calcium Level 9.0, Aspartate Amino Transf (AST/SGOT) 36, Alanine Aminotransferase (ALT/SGPT) 25, Alkaline Phosphatase 71, Total Bilirubin 0.8, Total Protein 7.3, Albumin 3.6 Vital Signs Date Time Temp Pulse Resp B/P (MAP) Pulse Ox O2 Delivery O2 Flow Rate FiO2 02/11/17 12:00 98.2 72 18 114/59 (60) 94 Room Air I&O- Last 24 Hours up to 6 AM 02/12/17 06:00 Intake Total 0 ml Output Total 0 ml Balance 0 ml AMAYA ARENAS MD Feb 11, 2017 16:19
[2017-02-11 20:00] VITALS: BP 137/63
[2017-02-11] MEDS: HALOPERIDOL 0.5 MG TAB PO SCH (23:37)
[2017-02-11] MEDS: QUEtiapine FUMARATE 25 MG TAB PO SCH (23:37)
[2017-02-12] VITALS: BP 163/76
[2017-02-12 04:00] VITALS: BP 157/73
[2017-02-12 04:23] LABS: MEAN CORPUSCULAR HEMOGLOBIN 28.8 pg (27.0-33.0); MEAN CORPUSCULAR HGB CONC 32.9 g/dl (32.0-36.5); MEAN CORPUSCULAR VOLUME 87.4 fl (80.0-96.0); PLATELET COUNT, AUTOMATED 160 10^3/uL (150-450); RED CELL DISTRIBUTION WIDTH 13.2 % (11.5-14.5); WHITE BLOOD COUNT 8.5 10^3/uL (4.0-10.0)
[2017-02-12 04:43] LABS: ALBUMIN 3.1 GM/DL (3.2-5.2); ALBUMIN/GLOBULIN RATIO 0.91 (1.00-1.93); BILIRUBIN,TOTAL 0.7 MG/DL (0.2-1.0); CALCIUM LEVEL 8.4 MG/DL (8.8-10.2); CREATININE FOR GFR 1.64 MG/DL (0.70-1.30); GLOMERULAR FILTRATION RATE 42.4 (>35); POTASSIUM SERUM 3.6 MEQ/L (3.5-5.1); TOTAL PROTEIN 6.5 GM/DL (6.4-8.2)
[2017-02-12] MEDS: LEVOTHYROXINE 75MCG TABLET (0.075MG) PO SCH (06:31)
[2017-02-12 08:00] VITALS: BP 157/75
[2017-02-12] MEDS: ASPIRIN 81 MG ENTERIC TAB PO SCH (09:40)
[2017-02-12] MEDS: VENLAFAXINE **XR** 75MG CAPSULE PO SCH (09:40)
[2017-02-12] MEDS: HALOPERIDOL 0.5 MG TAB PO SCH ×2 (09:40→20:00)
[2017-02-12] MEDS: ATORVASTATIN 20 MG TAB PO SCH (09:40)
[2017-02-12] MEDS: VITAMIN D 1,000 INTERNATIONAL UNITS TABLET PO SCH (09:40)
--- NOTE | 2017-02-12 12:52 | IPNPDOC ---
Text Note Date of Service The patient was seen on 02/12/17. 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 In the ER the patient's symptoms had resolved. Patient received imaging that was negative for any acute CVA. Throughout the hospital course patient has had delirium and has had his medications adjusted. Patient was seen and examined at the bedside. Remains only oriented to person, is unsure of where he is or what the current date is. Objective: Vitals (See below) General: Lying in bed, no acute distress, comfortable, AAOx1 HEENT: NC, AT CVS: RRR, +S1S2 Lungs: Fair air entry b/l, -w/r/r Abdomen: Soft, ND, NT Extremities: - Edema, - Calf tenderness Assessment and plan: AMS - likely 2/2 Delirium, possibly 2/2 worsening dementia - Presented after he had left-sided facial droop and left upper extremity weakness - Symptoms had resolved upon presentation to the emergency room - Remains oriented x1; person only - Has been noted to have episodes of delirium and agitation throughout hospital course - Neurology has been consulted; appreciate their input - c/w Haldol IM, quetiapine - Will c/w physical therapy; looking into sub-acute rehab options, bridge to return to assisted living TIA - Has had full resolution of his symptoms - MRI/MRA head noted - Continue with aspirin 81, atorvastatin 20 Hemophagic CVA (3 years prior) CKD3 - Baseline creatinine is approximately 1.5-1.8 - Mild elevation in creatinine this morning - s/p IV fluid hydration Hypothyroidism - c/w levothyroxine Depression / Anxiety - Continue with venlafaxine DVT prophylaxis - c/w SCDs VS,Fishbone, I+O VS, Fishbone, I+O Laboratory Tests 02/12/17 03:52 Red Blood Count 4.83, Mean Corpuscular Volume 87.4, Mean Corpuscular Hemoglobin 28.8, Mean Corpuscular Hemoglobin Concent 32.9, Red Cell Distribution Width 13.2 , Calcium Level 8.4 L, Aspartate Amino Transf (AST/SGOT) 24, Alanine Aminotransferase (ALT/SGPT) 19, Alkaline Phosphatase 64, Total Bilirubin 0.7, Total Protein 6.5, Albumin 3.1 L Vital Signs Date Time Temp Pulse Resp B/P (MAP) Pulse Ox O2 Delivery O2 Flow Rate FiO2 02/12/17 08:00 97.9 70 18 157/75 (102) 96 Room Air I&O- Last 24 Hours up to 6 AM 02/13/17 06:00 Intake Total 120 ml Output Total 300 ml Balance -180 ml AMAYA ARENAS MD Feb 12, 2017 12:52
[2017-02-12 16:00] VITALS: BP 153/70
[2017-02-12] MEDS: QUEtiapine FUMARATE 25 MG TAB PO SCH (20:00)
[2017-02-12 20:20] VITALS: BP 158/70
[2017-02-13 05:15] VITALS: BP 128/96
[2017-02-13] MEDS: LEVOTHYROXINE 75MCG TABLET (0.075MG) PO SCH (06:00)
[2017-02-13 08:00] VITALS: BP 174/77
[2017-02-13] MEDS: ATORVASTATIN 20 MG TAB PO SCH (08:39)
[2017-02-13] MEDS: ASPIRIN 81 MG ENTERIC TAB PO SCH (08:39)
[2017-02-13] MEDS: VENLAFAXINE **XR** 75MG CAPSULE PO SCH (08:39)
[2017-02-13] MEDS: VITAMIN D 1,000 INTERNATIONAL UNITS TABLET PO SCH (08:39)
[2017-02-13] MEDS: HALOPERIDOL 0.5 MG TAB PO SCH ×2 (08:39→21:24)
[2017-02-13 10:00] LABS: MEAN CORPUSCULAR HEMOGLOBIN 29.2 pg (27.0-33.0); MEAN CORPUSCULAR HGB CONC 32.9 g/dl (32.0-36.5); MEAN CORPUSCULAR VOLUME 88.7 fl (80.0-96.0); PLATELET COUNT, AUTOMATED 177 10^3/uL (150-450); RED CELL DISTRIBUTION WIDTH 13.1 % (11.5-14.5); WHITE BLOOD COUNT 8.2 10^3/uL (4.0-10.0)
[2017-02-13 10:43] LABS: ALBUMIN 3.3 GM/DL (3.2-5.2); ALBUMIN/GLOBULIN RATIO 1.1 (1.00-1.93); BILIRUBIN,TOTAL 0.5 MG/DL (0.2-1.0); CALCIUM LEVEL 8.8 MG/DL (8.8-10.2); CREATININE FOR GFR 1.46 MG/DL (0.70-1.30); GLOMERULAR FILTRATION RATE 48.5 (>35); POTASSIUM SERUM 3.8 MEQ/L (3.5-5.1); TOTAL PROTEIN 6.3 GM/DL (6.4-8.2)
--- NOTE | 2017-02-13 13:28 | IPNPDOC ---
Text Note Date of Service The patient was seen on 02/13/17. 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 In the ER the patient's symptoms had resolved. Patient received imaging that was negative for any acute CVA. Throughout the hospital course patient has had delirium and has had his medications adjusted. Patient was seen and examined at the bedside. Patient has had difficulty sleeping overnight. Discussed with him this morning used to be only oriented to person, is not quite sure where he is or what time it is. Denies any other complaints. Objective: Vitals (See below) General: Lying in bed, no acute distress, comfortable, AAOx1 HEENT: NC, AT CVS: RRR, +S1S2 Lungs: Fair air entry b/l, -w/r/r Abdomen: Soft, ND, NT Extremities: - Edema, - Calf tenderness Assessment and plan: AMS - likely 2/2 Delirium, possibly 2/2 worsening dementia - Symptoms had resolved upon presentation to the emergency room - Remains oriented x1; person only - Neurology has been consulted; appreciate their input - c/w Haldol IM, Quetiapine - Discussed plan with daughter and physical therapy; plan is to transition patient to [facility]; with possible reassignment to assisted living in the future TIA - Presented after he had left-sided facial droop and left upper extremity weakness - Has had full resolution of his symptoms - MRI/MRA head noted - Continue with aspirin 81, atorvastatin 20 Hemophagic CVA (3 years prior) CKD3 - Baseline creatinine is approximately 1.5-1.8 - Mild elevation in creatinine this morning - s/p IV fluid hydration Hypothyroidism - c/w levothyroxine Depression / Anxiety - c/w venlafaxine DVT prophylaxis - c/w SCDs VS,Fishbone, I+O VS, Fishbone, I+O Laboratory Tests 02/13/17 09:28 Red Blood Count 4.69, Mean Corpuscular Volume 88.7, Mean Corpuscular Hemoglobin 29.2, Mean Corpuscular Hemoglobin Concent 32.9, Red Cell Distribution Width 13.1 , Calcium Level 8.8, Aspartate Amino Transf (AST/SGOT) 19, Alanine Aminotransferase (ALT/SGPT) 23, Alkaline Phosphatase 69, Total Bilirubin 0.5, Total Protein 6.3 L, Albumin 3.3 Vital Signs Date Time Temp Pulse Resp B/P (MAP) Pulse Ox O2 Delivery O2 Flow Rate FiO2 02/13/17 08:00 98.0 70 16 174/77 (109) 97 Room Air I&O- Last 24 Hours up to 6 AM 02/14/17 06:00 Intake Total 240 ml Output Total 500 ml Balance -260 ml AMAYA ARENAS MD Feb 13, 2017 13:28
[2017-02-13 20:00] VITALS: BP 187/88
[2017-02-13] MEDS: QUEtiapine FUMARATE 25 MG TAB PO SCH (21:24)
[2017-02-14 04:15] VITALS: BP 150/98
[2017-02-14] MEDS: LEVOTHYROXINE 75MCG TABLET (0.075MG) PO SCH (06:46)
[2017-02-14 08:00] VITALS: BP 166/78
[2017-02-14 08:08] LABS: BASO % 0.4 % (0.0-1.0); EOS # 0.1 10^3/uL (0.0-0.50); EOS % 1.8 % (0.0-3.0); LYMPH % 27.6 % (24.0-44.0); MEAN CORPUSCULAR HEMOGLOBIN 29.2 pg (27.0-33.0); MEAN CORPUSCULAR HGB CONC 33.7 g/dl (32.0-36.5); MEAN CORPUSCULAR VOLUME 86.5 fl (80.0-96.0); MONO # 0.8 10^3/uL (0.0-0.8); MONO % 10.4 % (0.0-5.0); NEUTROPHILS # 4.3 10^3/uL (1.8-7.7); NEUTROPHILS % 58.8 % (36.0-66.0); PLATELET COUNT, AUTOMATED 176 10^3/uL (150-450); WHITE BLOOD COUNT 7.3 10^3/uL (4.0-10.0)
[2017-02-14 08:31] LABS: ALBUMIN 3.4 GM/DL (3.2-5.2); ALBUMIN/GLOBULIN RATIO 1.13 (1.00-1.93); BILIRUBIN,TOTAL 0.7 MG/DL (0.2-1.0); CALCIUM LEVEL 8.5 MG/DL (8.8-10.2); CREATININE FOR GFR 1.4 MG/DL (0.70-1.30); GLOMERULAR FILTRATION RATE 50.9 (>35); POTASSIUM SERUM 3.6 MEQ/L (3.5-5.1); TOTAL PROTEIN 6.4 GM/DL (6.4-8.2)
[2017-02-14] MEDS: HALOPERIDOL 0.5 MG TAB PO SCH ×2 (09:34→20:23)
[2017-02-14] MEDS: ATORVASTATIN 20 MG TAB PO SCH (09:34)
[2017-02-14] MEDS: VITAMIN D 1,000 INTERNATIONAL UNITS TABLET PO SCH (09:34)
[2017-02-14] MEDS: VENLAFAXINE **XR** 75MG CAPSULE PO SCH (09:35)
[2017-02-14] MEDS: ASPIRIN 81 MG ENTERIC TAB PO SCH (09:35)
--- NOTE | 2017-02-14 11:41 | IPNPDOC ---
Text Note Date of Service The patient was seen on 02/14/17. 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 In the ER the patient's symptoms had resolved. Patient received imaging that was negative for any acute CVA. Throughout the hospital course patient has had delirium and has had his medications adjusted. Patient was seen and examined at the bedside. Patient still remains disoriented to place and time. He denies any pain or problems. Currently looking into placement options with consideration for transition to assisted living. Objective: Vitals (See below) General: Lying in bed, no acute distress, comfortable, AAOx1 HEENT: NC, AT CVS: RRR, +S1S2 Lungs: Fair air entry b/l, -w/r/r Abdomen: Soft, ND, NT Extremities: - Edema, - Calf tenderness Assessment and plan: AMS - likely 2/2 Delirium, possibly 2/2 worsening dementia - Remains oriented x1; person only - Neurology has been consulted; appreciate their input - c/w Haldol IM, Quetiapine - Currently will continue with PT - Looking into placement options as patient remains functionally capable, but not oriented - Family still wants to keep the option of transitioning to assisted living at some point in the future open TIA - Presented after he had left-sided facial droop and left upper extremity weakness - Has had full resolution of his symptoms - MRI/MRA head noted - Continue with aspirin 81, atorvastatin 20 Hemophagic CVA (3 years prior) CKD3 - Baseline creatinine is approximately 1.5-1.8 - Mild elevation in creatinine this morning - s/p IV fluid hydration Hypothyroidism - c/w levothyroxine Depression / Anxiety - c/w venlafaxine DVT prophylaxis - c/w SCDs Disposition: - c/w PT - Looking into transition to sub-acute rehab; with possible transition to assisted living if improvement occurs VS,Fishbone, I+O VS, Fishbone, I+O Laboratory Tests 02/14/17 07:43 Red Blood Count 4.73, Mean Corpuscular Volume 86.5, Mean Corpuscular Hemoglobin 29.2, Mean Corpuscular Hemoglobin Concent 33.7, Red Cell Distribution Width 13.0 , Neutrophils (%) (Auto) 58.8, Lymphocytes (%) (Auto) 27.6, Monocytes (%) (Auto ) 10.4 H, Eosinophils (%) (Auto) 1.8, Basophils (%) (Auto) 0.4, Neutrophils # ( Auto) 4.3, Lymphocytes # (Auto) 2.0, Monocytes # (Auto) 0.8, Eosinophils # (Auto ) 0.1, Basophils # (Auto) 0.0, Calcium Level 8.5 L, Aspartate Amino Transf (AST/ SGOT) 15, Alanine Aminotransferase (ALT/SGPT) 23, Alkaline Phosphatase 68, Total Bilirubin 0.7, Total Protein 6.4, Albumin 3.4 Vital Signs Date Time Temp Pulse Resp B/P (MAP) Pulse Ox O2 Delivery O2 Flow Rate FiO2 02/14/17 08:00 99.9 64 17 166/78 (107) 97 Room Air I&O- Last 24 Hours up to 6 AM 02/15/17 06:00 Output Total 450 ml Balance -450 ml AMAYA ARENAS MD Feb 14, 2017 11:41
[2017-02-14 16:00] VITALS: BP 171/81
[2017-02-14 20:00] VITALS: BP 194/87
[2017-02-14] MEDS: QUEtiapine FUMARATE 25 MG TAB PO SCH (20:23)
[2017-02-14] MEDS: hydrALAZINE INJ 20 MG/ML VIAL IV PRN (20:24)
[2017-02-15] VITALS (8 sets, daily range): BP systolic 132–179; BP diastolic 61–76
[2017-02-15] MEDS: LEVOTHYROXINE 75MCG TABLET (0.075MG) PO SCH (05:09)
[2017-02-15 05:58] LABS: BASO % 0.3 % (0.0-1.0); EOS # 0.1 10^3/uL (0.0-0.50); EOS % 1.6 % (0.0-3.0); IMMATURE GRANULOCYTE % 0.7 % (0-0); LYMPH # 1.9 10^3/uL (1.5-4.5); LYMPH % 25.2 % (24.0-44.0); MEAN CORPUSCULAR HEMOGLOBIN 29.2 pg (27.0-33.0); MEAN CORPUSCULAR HGB CONC 34.1 g/dl (32.0-36.5); MEAN CORPUSCULAR VOLUME 85.8 fl (80.0-96.0); MONO # 0.8 10^3/uL (0.0-0.8); MONO % 10.5 % (0.0-5.0); NEUTROPHILS # 4.7 10^3/uL (1.8-7.7); NEUTROPHILS % 61.7 % (36.0-66.0); PLATELET COUNT, AUTOMATED 179 10^3/uL (150-450); WHITE BLOOD COUNT 7.5 10^3/uL (4.0-10.0)
[2017-02-15 06:21] LABS: ALBUMIN 3.3 GM/DL (3.2-5.2); BILIRUBIN,TOTAL 0.6 MG/DL (0.2-1.0); CALCIUM LEVEL 8.7 MG/DL (8.8-10.2); CREATININE FOR GFR 1.53 MG/DL (0.70-1.30); MAGNESIUM LEVEL 1.9 MG/DL (1.8-2.4); POTASSIUM SERUM 3.6 MEQ/L (3.5-5.1); TOTAL PROTEIN 6.6 GM/DL (6.4-8.2)
[2017-02-15] MEDS: VITAMIN D 1,000 INTERNATIONAL UNITS TABLET PO SCH (08:54)
[2017-02-15] MEDS: ASPIRIN 81 MG ENTERIC TAB PO SCH (08:54)
[2017-02-15] MEDS: VENLAFAXINE **XR** 75MG CAPSULE PO SCH (08:54)
[2017-02-15] MEDS: HALOPERIDOL 0.5 MG TAB PO SCH ×3 (08:54→21:51)
[2017-02-15] MEDS: ATORVASTATIN 20 MG TAB PO SCH (08:54)
--- NOTE | 2017-02-15 11:27 | IPNPDOC ---
Text Note Date of Service The patient was seen on 02/15/17. 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 In the ER the patient's symptoms had resolved. Patient received imaging that was negative for any acute CVA. Throughout the hospital course patient has had delirium and has had his medications adjusted. Patient was seen and examined at the bedside. Patient still remains disoriented. I discussed with his daughter that. Currently, our plan is to continue physical therapy and look into subacute placement options with consideration that he may be transition to assisted living if his situation improves. Currently he is only oriented to person. Objective: Vitals (See below) General: Lying in bed, no acute distress, comfortable, AAOx1 HEENT: NC, AT CVS: RRR, +S1S2 Lungs: Fair air entry b/l, -w/r/r Abdomen: Soft, ND, NT Extremities: - Edema, - Calf tenderness Assessment and plan: AMS - likely 2/2 Delirium, possibly 2/2 worsening dementia - Remains oriented x1; person only - Neurology has been consulted; appreciate their input - c/w Haldol IM, Quetiapine - c/w PT and frequent ambulation - Advised nursing staff about keeping patient oriented; will look into placement options TIA - Presented after he had left-sided facial droop and left upper extremity weakness - Has had full resolution of his symptoms - MRI/MRA head noted - Continue with aspirin 81, atorvastatin 20 Hemophagic CVA (3 years prior) CKD3 - Baseline creatinine is approximately 1.5-1.8 - Mild elevation in creatinine this morning - s/p IV fluid hydration Hypothyroidism - c/w levothyroxine Depression / Anxiety - c/w venlafaxine DVT prophylaxis - c/w SCDs Disposition: - c/w PT - awaiting placement Gay HAWKINS, I+O Gay HAWKINS I+O Laboratory Tests 02/15/17 05:46 Red Blood Count 4.65, Mean Corpuscular Volume 85.8, Mean Corpuscular Hemoglobin 29.2, Mean Corpuscular Hemoglobin Concent 34.1, Red Cell Distribution Width 13.0 , Neutrophils (%) (Auto) 61.7, Lymphocytes (%) (Auto) 25.2, Monocytes (%) (Auto ) 10.5 H, Eosinophils (%) (Auto) 1.6, Basophils (%) (Auto) 0.3, Neutrophils # ( Auto) 4.7, Lymphocytes # (Auto) 1.9, Monocytes # (Auto) 0.8, Eosinophils # (Auto ) 0.1, Basophils # (Auto) 0.0, Calcium Level 8.7 L, Aspartate Amino Transf (AST/ SGOT) 13, Alanine Aminotransferase (ALT/SGPT) 19, Alkaline Phosphatase 69, Total Bilirubin 0.6, Total Protein 6.6, Albumin 3.3 Vital Signs Date Time Temp Pulse Resp B/P (MAP) Pulse Ox O2 Delivery O2 Flow Rate FiO2 02/15/17 09:51 98.2 66 16 148/66 (93) 98 Room Air I&O- Last 24 Hours up to 6 AM 02/16/17 06:00 Intake Total 120 ml Output Total 0 ml Balance 120 ml AMAYA ARENAS MD Feb 15, 2017 11:27
[2017-02-15] MEDS ORDERED: SLF 3 ML SYR IV PRN (15:15)
[2017-02-15] MEDS: QUEtiapine FUMARATE 25 MG TAB PO SCH ×2 (21:14→21:51)
[2017-02-15] MEDS: SLF 3 ML SYR IV SCH (21:15)
[2017-02-16] VITALS (8 sets, daily range): BP systolic 102–180; BP diastolic 50–86
[2017-02-16 05:31] LABS: BASO % 0.4 % (0.0-1.0); EOS # 0.1 10^3/uL (0.0-0.50); EOS % 1.7 % (0.0-3.0); IMMATURE GRANULOCYTE % 0.7 % (0-0); LYMPH % 24.2 % (24.0-44.0); MEAN CORPUSCULAR HEMOGLOBIN 29.1 pg (27.0-33.0); MEAN CORPUSCULAR HGB CONC 33.1 g/dl (32.0-36.5); MEAN CORPUSCULAR VOLUME 87.9 fl (80.0-96.0); MONO # 0.8 10^3/uL (0.0-0.8); MONO % 9.9 % (0.0-5.0); NEUTROPHILS # 5.2 10^3/uL (1.8-7.7); NEUTROPHILS % 63.1 % (36.0-66.0); PLATELET COUNT, AUTOMATED 187 10^3/uL (150-450); RED CELL DISTRIBUTION WIDTH 12.9 % (11.5-14.5); WHITE BLOOD COUNT 8.2 10^3/uL (4.0-10.0)
[2017-02-16 05:49] LABS: ALBUMIN 3.5 GM/DL (3.2-5.2); ALBUMIN/GLOBULIN RATIO 1.09 (1.00-1.93); BILIRUBIN,TOTAL 0.7 MG/DL (0.2-1.0); CALCIUM LEVEL 8.5 MG/DL (8.8-10.2); CREATININE FOR GFR 1.62 MG/DL (0.70-1.30); MAGNESIUM LEVEL 1.9 MG/DL (1.8-2.4); POTASSIUM SERUM 3.8 MEQ/L (3.5-5.1); TOTAL PROTEIN 6.7 GM/DL (6.4-8.2)
[2017-02-16] MEDS: SLF 3 ML SYR IV SCH ×3 (06:25→20:10)
[2017-02-16] MEDS: LEVOTHYROXINE 75MCG TABLET (0.075MG) PO SCH (06:26)
[2017-02-16] MEDS: ASPIRIN 81 MG ENTERIC TAB PO SCH (08:39)
[2017-02-16] MEDS: VITAMIN D 1,000 INTERNATIONAL UNITS TABLET PO SCH (08:40)
[2017-02-16] MEDS: VENLAFAXINE **XR** 75MG CAPSULE PO SCH (08:40)
[2017-02-16] MEDS: ATORVASTATIN 20 MG TAB PO SCH (08:40)
[2017-02-16] MEDS: HALOPERIDOL 0.5 MG TAB PO SCH ×2 (08:40→20:10)
[2017-02-16] MEDS: hydrALAZINE INJ 20 MG/ML VIAL IV PRN ×2 (16:34→20:10)
--- NOTE | 2017-02-16 17:37 | IPNPDOC ---
Text Note Date of Service The patient was seen on 02/16/17. 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 In the ER the patient's symptoms had resolved. Patient received imaging that was negative for any acute CVA. Throughout the hospital course patient has had delirium and has had his medications adjusted. Patient was seen and examined at the bedside. Has no complaints from overnight or this morning. Was a little upset that his room was moved. I have discussed with the daughter that we will continue to work with physical therapy and go based on their recommendations. Patient's daughter is adamant that he should be returned back to assisted living. Social work will have assisted living staff come to evaluate. Objective: Vitals (See below) General: Lying in bed, no acute distress, comfortable, AAOx1 HEENT: NC, AT CVS: RRR, +S1S2 Lungs: Fair air entry b/l, -w/r/r Abdomen: Soft, ND, NT Extremities: - Edema, - Calf tenderness Assessment and plan: AMS - likely 2/2 Delirium, possibly 2/2 worsening dementia - Remains oriented x1; person only - Neurology has been consulted; appreciate their input - c/w Haldol IM, Quetiapine - c/w PT - [facility] to re-evaluate patient on Sunday TIA - Presented after he had left-sided facial droop and left upper extremity weakness - Has had full resolution of his symptoms - MRI/MRA head noted - c/w aspirin 81 & atorvastatin 20 Hemophagic CVA (3 years prior) CKD3 - Baseline creatinine is approximately 1.5-1.8 - Mild elevation in creatinine this morning - s/p IV fluid hydration Hypothyroidism - c/w levothyroxine Depression / Anxiety - c/w venlafaxine DVT prophylaxis - c/w SCDs Disposition: - c/w PT - [facility] staff to evaluate patient on Sunday VS,Fishbone, I+O VS, Fishbone, I+O Laboratory Tests 02/16/17 05:12 Red Blood Count 4.71, Mean Corpuscular Volume 87.9, Mean Corpuscular Hemoglobin 29.1, Mean Corpuscular Hemoglobin Concent 33.1, Red Cell Distribution Width 12.9 , Neutrophils (%) (Auto) 63.1, Lymphocytes (%) (Auto) 24.2, Monocytes (%) (Auto ) 9.9 H, Eosinophils (%) (Auto) 1.7, Basophils (%) (Auto) 0.4, Neutrophils # ( Auto) 5.2, Lymphocytes # (Auto) 2.0, Monocytes # (Auto) 0.8, Eosinophils # (Auto ) 0.1, Basophils # (Auto) 0.0, Calcium Level 8.5 L, Aspartate Amino Transf (AST/ SGOT) 11, Alanine Aminotransferase (ALT/SGPT) 22, Alkaline Phosphatase 67, Total Bilirubin 0.7, Total Protein 6.7, Albumin 3.5 Vital Signs Date Time Temp Pulse Resp B/P (MAP) Pulse Ox O2 Delivery O2 Flow Rate FiO2 02/16/17 16:34 180/86 02/16/17 16:00 98.9 74 20 99 Room Air I&O- Last 24 Hours up to 6 AM 02/17/17 06:00 Intake Total 120 ml Output Total 200 ml Balance -80 ml AMAYA ARENAS MD Feb 16, 2017 17:37
[2017-02-16] MEDS: QUEtiapine FUMARATE 25 MG TAB PO SCH (20:10)
[2017-02-17 05:26] LABS: BASO % 0.4 % (0.0-1.0); EOS # 0.1 10^3/uL (0.0-0.50); EOS % 1.3 % (0.0-3.0); IMMATURE GRANULOCYTE % 0.7 % (0-0); LYMPH # 2.3 10^3/uL (1.5-4.5); LYMPH % 26.9 % (24.0-44.0); MEAN CORPUSCULAR HEMOGLOBIN 29.3 pg (27.0-33.0); MEAN CORPUSCULAR HGB CONC 33.7 g/dl (32.0-36.5); MEAN CORPUSCULAR VOLUME 87.1 fl (80.0-96.0); MONO # 0.8 10^3/uL (0.0-0.8); MONO % 9.7 % (0.0-5.0); NEUTROPHILS # 5.1 10^3/uL (1.8-7.7); PLATELET COUNT, AUTOMATED 208 10^3/uL (150-450); RED CELL DISTRIBUTION WIDTH 13.1 % (11.5-14.5); WHITE BLOOD COUNT 8.4 10^3/uL (4.0-10.0)
[2017-02-17 05:47] LABS: ALBUMIN 3.3 GM/DL (3.2-5.2); BILIRUBIN,TOTAL 0.8 MG/DL (0.2-1.0); CALCIUM LEVEL 8.7 MG/DL (8.8-10.2); CREATININE FOR GFR 1.51 MG/DL (0.70-1.30); GLOMERULAR FILTRATION RATE 46.7 (>35); POTASSIUM SERUM 3.6 MEQ/L (3.5-5.1); TOTAL PROTEIN 6.6 GM/DL (6.4-8.2)
[2017-02-17] MEDS: LEVOTHYROXINE 75MCG TABLET (0.075MG) PO SCH ×2 (06:00→06:30)
[2017-02-17 06:30] VITALS: BP 147/71
[2017-02-17] MEDS: SLF 3 ML SYR IV SCH ×3 (06:30→22:00)
[2017-02-17] MEDS ORDERED: D5/0.45%NACL 1000ML IV ONE (08:30)
[2017-02-17] MEDS: VENLAFAXINE **XR** 75MG CAPSULE PO SCH (09:00)
[2017-02-17] MEDS: HALOPERIDOL 0.5 MG TAB PO SCH ×3 (09:00→21:17)
[2017-02-17] MEDS: ASPIRIN 81 MG ENTERIC TAB PO SCH (09:00)
[2017-02-17] MEDS: ATORVASTATIN 20 MG TAB PO SCH (09:00)
[2017-02-17] MEDS: VITAMIN D 1,000 INTERNATIONAL UNITS TABLET PO SCH (09:00)
[2017-02-17] MEDS ORDERED: D5W/0.45% SODIUM CHLORIDE 1,000 ML IV SCH (09:30)
--- NOTE | 2017-02-17 11:00 | IPNPDOC ---
Text Note Date of Service The patient was seen on 02/17/17. 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 In the ER the patient's symptoms had resolved. Patient received imaging that was negative for any acute CVA. Throughout the hospital course patient has had delirium and has had his medications adjusted. Patient was reportedly unresponsive for 10 seconds yesterday at 9PM. He was being ambulated from bathroom to bed, when he got in bed he was non-responsive and a rapid assessment was called. He became responsive prior to arrival of physician. No further episodes since. Patient was seen and examined at the bedside. He notes that he is in pain, but can't localize anything and responds "I don't know" when asked about where his pain is. He does not appear to be in any acute distress. His daughter is present at the bedside. Objective: Vitals (See below) General: Lying in bed, no acute distress, comfortable, AAOx1 HEENT: NC, AT CVS: RRR, +S1S2 Lungs: Fair air entry b/l, -w/r/r Abdomen: Soft, ND, NT Extremities: - Edema, - Calf tenderness Assessment and plan: AMS - likely 2/2 Delirium, possibly 2/2 worsening dementia - Remains oriented x1; person only - Neurology has been consulted; appreciate their input - c/w Haldol, Quetiapine - c/w PT; will be assessed by assisted living facility staff to determine if he can return (likely Sunday) Pain - unable to localize - Will evaluate for signs of infection - Has had low grade temperature; but none >100.0 - Lactic acid negative - Will check CXR, UA and Blood cultures - Will hold off on antibiotics Hypernatremia - likely 2/2 poor oral intake - likely 2/2 progressive dementia - Will start D5W at 60 cc - Will repeat BMP at 12 PM TIA - Presented after he had left-sided facial droop and left upper extremity weakness - Has had full resolution of his symptoms - MRI/MRA head noted - c/w aspirin 81 & atorvastatin 20 Hypertension - Will start amlodipine 2.5 mg daily - Will dc Hydralazine 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 staff to evaluate patient on Sunday VS,Fishbone, I+O VS, Fishbone, I+O Laboratory Tests 02/17/17 05:01 Red Blood Count 4.57, Mean Corpuscular Volume 87.1, Mean Corpuscular Hemoglobin 29.3, Mean Corpuscular Hemoglobin Concent 33.7, Red Cell Distribution Width 13.1 , Neutrophils (%) (Auto) 61.0, Lymphocytes (%) (Auto) 26.9, Monocytes (%) (Auto ) 9.7 H, Eosinophils (%) (Auto) 1.3, Basophils (%) (Auto) 0.4, Neutrophils # ( Auto) 5.1, Lymphocytes # (Auto) 2.3, Monocytes # (Auto) 0.8, Eosinophils # (Auto ) 0.1, Basophils # (Auto) 0.0, Calcium Level 8.7 L, Aspartate Amino Transf (AST/ SGOT) 12, Alanine Aminotransferase (ALT/SGPT) 14, Alkaline Phosphatase 69, Total Bilirubin 0.8, Total Protein 6.6, Albumin 3.3 Vital Signs Date Time Temp Pulse Resp B/P (MAP) Pulse Ox O2 Delivery O2 Flow Rate FiO2 02/17/17 06:30 99.2 67 18 147/71 (96) 96 Room Air AMAYA ARENAS MD Feb 17, 2017 11:00
--- NOTE | 2017-02-17 12:06 | REP ---
REASON FOR EXAM: Cough. COMPARISON: Portable 02/06/2017. The technique utilized in obtaining the radiograph has magnified the cardiac silhouette and accentuated the interstitial markings. FINDINGS: The superior mediastinal structures are midline. The cardiac silhouette is unremarkable in size, shape, and position. The diaphragmatic surfaces of the lungs are regular, and the costophrenic angles are clear. The pulmonary farias are clear. The imaged osseous structures are intact. IMPRESSION: There is no acute cardiopulmonary disease. No change from prior exam. Signed by Helio Lagunas DO 02/17/2017 10:20 A
[2017-02-17 13:32] LABS: CALCIUM LEVEL 8.6 MG/DL (8.8-10.2); CREATININE FOR GFR 1.48 MG/DL (0.70-1.30); GLOMERULAR FILTRATION RATE 47.8 (>35)
[2017-02-17 14:26] VITALS: BP 132/60
[2017-02-17] MEDS: QUEtiapine FUMARATE 25 MG TAB PO SCH ×2 (20:23→21:17)
[2017-02-18] MEDS: LEVOTHYROXINE 75MCG TABLET (0.075MG) PO SCH (06:03)
[2017-02-18] MEDS: SLF 3 ML SYR IV SCH ×3 (06:03→22:00)
[2017-02-18 06:27] LABS: BASO % 0.4 % (0.0-1.0); EOS # 0.2 10^3/uL (0.0-0.50); IMMATURE GRANULOCYTE % 0.9 % (0-0); LYMPH # 2.2 10^3/uL (1.5-4.5); LYMPH % 28.3 % (24.0-44.0); MEAN CORPUSCULAR HEMOGLOBIN 28.6 pg (27.0-33.0); MEAN CORPUSCULAR VOLUME 86.8 fl (80.0-96.0); MONO # 0.7 10^3/uL (0.0-0.8); MONO % 9.4 % (0.0-5.0); NEUTROPHILS # 4.5 10^3/uL (1.8-7.7); PLATELET COUNT, AUTOMATED 202 10^3/uL (150-450); WHITE BLOOD COUNT 7.6 10^3/uL (4.0-10.0)
[2017-02-18 06:28] VITALS: BP 144/65
[2017-02-18 06:48] LABS: ALBUMIN 3.3 GM/DL (3.2-5.2); ALBUMIN/GLOBULIN RATIO 1.1 (1.00-1.93); BILIRUBIN,TOTAL 0.8 MG/DL (0.2-1.0); CALCIUM LEVEL 9.2 MG/DL (8.8-10.2); CREATININE FOR GFR 1.46 MG/DL (0.70-1.30); GLOMERULAR FILTRATION RATE 48.5 (>35); MAGNESIUM LEVEL 2.1 MG/DL (1.8-2.4); POTASSIUM SERUM 3.6 MEQ/L (3.5-5.1); TOTAL PROTEIN 6.3 GM/DL (6.4-8.2)
[2017-02-18] MEDS: VENLAFAXINE **XR** 75MG CAPSULE PO SCH (09:51)
[2017-02-18] MEDS: ASPIRIN 81 MG ENTERIC TAB PO SCH (09:51)
[2017-02-18] MEDS: HALOPERIDOL 0.5 MG TAB PO SCH ×2 (09:51→21:31)
[2017-02-18] MEDS: VITAMIN D 1,000 INTERNATIONAL UNITS TABLET PO SCH (09:51)
[2017-02-18] MEDS: ATORVASTATIN 20 MG TAB PO SCH (09:51)
--- NOTE | 2017-02-18 12:08 | IPNPDOC ---
Text Note Date of Service The patient was seen on 02/18/17. 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 In the ER the patient's symptoms had resolved. Patient received imaging that was negative for any acute CVA. Throughout the hospital course patient has had delirium and has had his medications adjusted. Patient was reportedly unresponsive for 10 seconds yesterday at 9PM. He was being ambulated from bathroom to bed, when he got in bed he was non-responsive and a rapid assessment was called. He became responsive prior to arrival of physician. No further episodes since. Patient was seen and examined at the bedside. He appears sleepy this morning. Is not as talkative. Still appears to have confusion. Objective: Vitals (See below) General: Lying in bed, no acute distress, comfortable, AAOx1 HEENT: NC, AT CVS: RRR, +S1S2 Lungs: Fair air entry b/l, -w/r/r Abdomen: Soft, ND, NT Extremities: - Edema, - Calf tenderness Assessment and plan: AMS - likely 2/2 Delirium, possibly 2/2 worsening dementia - Remains oriented to person only - Neurology has been consulted; appreciate their input - c/w Haldol, Quetiapine - c/w PT as tolerated - Will look into returning to assisted living if possible; otherwise will still need to consider sub-acute rehab s/p Pain (not localized) - Has had low grade temperature; but none >100.0 - Lactic acid negative - UA negative; CXR negative - Will hold off on antibiotics s/p Hypernatremia - likely 2/2 poor oral intake - likely 2/2 progressive dementia TIA - Presented after he had left-sided facial droop and left upper extremity weakness - Has had full resolution of his symptoms - MRI/MRA head noted - c/w aspirin 81 & atorvastatin 20 Hypertension - s/p Hydralazine - c/w amlodipine 2.5 mg daily 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 staff to evaluate patient on Sunday - If not accepted will need to consider sub-acute rehab VS,Gay, I+O VS, Gay, I+O Laboratory Tests 02/17/17 13:01 Calcium Level 8.6 L 02/18/17 06:12 Calcium Level 9.2, Red Blood Count 4.68, Mean Corpuscular Volume 86.8, Mean Corpuscular Hemoglobin 28.6, Mean Corpuscular Hemoglobin Concent 33.0, Red Cell Distribution Width 13.0, Neutrophils (%) (Auto) 59.0, Lymphocytes (%) (Auto) 28.3, Monocytes (%) (Auto) 9.4 H, Eosinophils (%) (Auto) 2.0, Basophils (%) ( Auto) 0.4, Neutrophils # (Auto) 4.5, Lymphocytes # (Auto) 2.2, Monocytes # (Auto ) 0.7, Eosinophils # (Auto) 0.2, Basophils # (Auto) 0.0, Aspartate Amino Transf (AST/SGOT) 13, Alanine Aminotransferase (ALT/SGPT) 13, Alkaline Phosphatase 62, Total Bilirubin 0.8, Total Protein 6.3 L, Albumin 3.3 Vital Signs Date Time Temp Pulse Resp B/P (MAP) Pulse Ox O2 Delivery O2 Flow Rate FiO2 02/18/17 09:51 56 144/65 02/18/17 06:28 97.3 15 93 Room Air AMAYA ARENAS MD Feb 18, 2017 12:08
[2017-02-18 14:00] VITALS: BP 138/64
[2017-02-18] MEDS: QUEtiapine FUMARATE 25 MG TAB PO SCH (21:31)
[2017-02-18 22:00] VITALS: BP 154/74
[2017-02-19 06:00] VITALS: BP 148/72
[2017-02-19] MEDS: SLF 3 ML SYR IV SCH ×3 (06:00→21:38)
[2017-02-19 06:06] LABS: BASO # 0.1 10^3/uL (0.0-0.2); BASO % 0.7 % (0.0-1.0); EOS # 0.2 10^3/uL (0.0-0.50); EOS % 2.3 % (0.0-3.0); LYMPH # 2.3 10^3/uL (1.5-4.5); LYMPH % 31.1 % (24.0-44.0); MEAN CORPUSCULAR HEMOGLOBIN 28.9 pg (27.0-33.0); MEAN CORPUSCULAR HGB CONC 32.8 g/dl (32.0-36.5); MEAN CORPUSCULAR VOLUME 88.1 fl (80.0-96.0); MONO # 0.7 10^3/uL (0.0-0.8); NEUTROPHILS # 4.1 10^3/uL (1.8-7.7); NEUTROPHILS % 55.9 % (36.0-66.0); PLATELET COUNT, AUTOMATED 213 10^3/uL (150-450); RED CELL DISTRIBUTION WIDTH 12.9 % (11.5-14.5); WHITE BLOOD COUNT 7.3 10^3/uL (4.0-10.0)
[2017-02-19] MEDS: LEVOTHYROXINE 75MCG TABLET (0.075MG) PO SCH (06:23)
[2017-02-19 06:25] LABS: ALBUMIN 3.2 GM/DL (3.2-5.2); ALBUMIN/GLOBULIN RATIO 0.94 (1.00-1.93); BILIRUBIN,TOTAL 0.6 MG/DL (0.2-1.0); CALCIUM LEVEL 8.9 MG/DL (8.8-10.2); CREATININE FOR GFR 1.59 MG/DL (0.70-1.30); MAGNESIUM LEVEL 2.1 MG/DL (1.8-2.4); POTASSIUM SERUM 3.7 MEQ/L (3.5-5.1); TOTAL PROTEIN 6.6 GM/DL (6.4-8.2)
[2017-02-19] MEDS: HALOPERIDOL 0.5 MG TAB PO SCH ×4 (09:00→21:37)
[2017-02-19] MEDS: VITAMIN D 1,000 INTERNATIONAL UNITS TABLET PO SCH (09:23)
[2017-02-19] MEDS: ATORVASTATIN 20 MG TAB PO SCH (09:23)
[2017-02-19] MEDS: ASPIRIN 81 MG ENTERIC TAB PO SCH (09:24)
[2017-02-19] MEDS: VENLAFAXINE **XR** 75MG CAPSULE PO SCH (09:24)
[2017-02-19 10:25] VITALS: BP 90/54
[2017-02-19 10:58] LABS: ABG BASE EXCESS -0.5 (-2.0-2.0); ABG HCO3 24.4 MEQ/L (22.0-26.0); ABG PARTIAL PRESSURE CO2 40.9 mmHg (35.0-45.0); ABG PARTIAL PRESSURE O2 241.5 mmHg (75.0-100.0); ABG STANDARD HCO3 24.1 MEQ/L (22.0-26.0); ABG TOTAL CO2 25.6 MEQ/L (23.0-31.0); ABG pH (ARTERIAL) 7.393 UNITS (7.350-7.450)
[2017-02-19 11:11] VITALS: BP 174/77
--- NOTE | 2017-02-19 11:46 | REP ---
PORTABLE CHEST X-RAY: Single view. HISTORY: Evaluate for fluid overload. COMPARISON STUDY: February 17, 2017. FINDINGS: EKG monitoring electrodes overlie the chest. Mild cardiac enlargement is observed unchanged. The aorta somewhat tortuous. The lungs are symmetrically aerated and clear. Pleural angles are sharp. Pulmonary vasculature is not increased. IMPRESSION: Mildly prominent heart. No evidence of pleural effusion or pulmonary edema. No focal infiltrate. Signed by Ho Unger MD 02/19/2017 12:39 P
[2017-02-19 11:50] LABS: BASO % 0.4 % (0.0-1.0); EOS # 0.1 10^3/uL (0.0-0.50); EOS % 1.6 % (0.0-3.0); IMMATURE GRANULOCYTE % 1.1 % (0-0); LYMPH # 1.6 10^3/uL (1.5-4.5); LYMPH % 22.2 % (24.0-44.0); MEAN CORPUSCULAR HGB CONC 32.8 g/dl (32.0-36.5); MEAN CORPUSCULAR VOLUME 88.4 fl (80.0-96.0); MONO # 0.6 10^3/uL (0.0-0.8); MONO % 8.2 % (0.0-5.0); NEUTROPHILS # 4.6 10^3/uL (1.8-7.7); NEUTROPHILS % 66.5 % (36.0-66.0); PLATELET COUNT, AUTOMATED 213 10^3/uL (150-450); RED CELL DISTRIBUTION WIDTH 13.1 % (11.5-14.5)
[2017-02-19 12:16] LABS: ALBUMIN 3.5 GM/DL (3.2-5.2); ALBUMIN/GLOBULIN RATIO 1.25 (1.00-1.93); BILIRUBIN,TOTAL 0.5 MG/DL (0.2-1.0); CALCIUM LEVEL 7.9 MG/DL (8.8-10.2); CREATININE FOR GFR 1.52 MG/DL (0.70-1.30); GLOMERULAR FILTRATION RATE 46.3 (>35); POTASSIUM SERUM 3.5 MEQ/L (3.5-5.1); TOTAL PROTEIN 6.3 GM/DL (6.4-8.2)
--- NOTE | 2017-02-19 13:13 | IPNPDOC ---
Text Note Date of Service The patient was seen on 02/19/17. 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 In the ER the patient's symptoms had resolved. Patient received imaging that was negative for any acute CVA. Throughout the hospital course patient has had delirium and has had his medications adjusted. Patient was seen and examined at the bedside. He was seen eating his breakfast. Did not have any complaints. Notes that he wasn't feeling well. Later this morning a rapid assessment was called. Patient was in the bathroom and straining and then passed out. He did not fall to the ground and sustained no trauma. Stat blood work, ABG, EKG and CXR were acquired. There have been no significant changes in any of these testing modalities. He has been transferred to PCU. Objective: Vitals (See below) General: Lying in bed, no acute distress, comfortable, AAOx1 HEENT: NC, AT CVS: RRR, +S1S2 Lungs: Fair air entry b/l, -w/r/r Abdomen: Soft, ND, NT Extremities: - Edema, - Calf tenderness Assessment and plan: Syncope - likely 2/2 vasovagal episode, less likely cardiac etiology 2/2 bradycardia - Was straining in the bathroom when he passed out - Blood pressure was in SBP of 90s when immediately checked; however has normalized to 170s - His HR has been bradycardic in the 50s - Repeat Lab work reviewed; no electrolyte abnormalities, no lactic acidosis, no elevation in pCO2 on ABG - CXR negative; EKG without any acute changes compared to admission EKG - c/w IV fluid hydration - Will transfer to PCU for continued telemetry monitoring AMS - likely 2/2 Delirium, possibly 2/2 worsening dementia - Remains oriented to person only - Neurology has been consulted; appreciate their input - c/w Quetiapine; will reduce dose of Haldol - c/w PT as tolerated - Will have to postpone re-evaluation with 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) CKD3 - Baseline creatinine is approximately 1.5-1.8 - Mild elevation in creatinine this morning - s/p IV fluid hydration Hypothyroidism - c/w levothyroxine Depression / Anxiety - c/w venlafaxine DVT prophylaxis - c/w SCDs Disposition: - Transfer to PCU; telemetry monitoring after a syncopal episode VS,Gay, I+O VS, Gay, I+O Laboratory Tests 02/19/17 05:33 Red Blood Count 4.71, Mean Corpuscular Volume 88.1, Mean Corpuscular Hemoglobin 28.9, Mean Corpuscular Hemoglobin Concent 32.8, Red Cell Distribution Width 12.9 , Neutrophils (%) (Auto) 55.9, Lymphocytes (%) (Auto) 31.1, Monocytes (%) (Auto ) 9.0 H, Eosinophils (%) (Auto) 2.3, Basophils (%) (Auto) 0.7, Neutrophils # ( Auto) 4.1, Lymphocytes # (Auto) 2.3, Monocytes # (Auto) 0.7, Eosinophils # (Auto ) 0.2, Basophils # (Auto) 0.1, Calcium Level 8.9, Aspartate Amino Transf (AST/ SGOT) 14, Alanine Aminotransferase (ALT/SGPT) 16, Alkaline Phosphatase 65, Total Bilirubin 0.6, Total Protein 6.6, Albumin 3.2 02/19/17 11:32 Red Blood Count 4.66, Mean Corpuscular Volume 88.4, Mean Corpuscular Hemoglobin 29.0, Mean Corpuscular Hemoglobin Concent 32.8, Red Cell Distribution Width 13.1 , Neutrophils (%) (Auto) 66.5 H, Lymphocytes (%) (Auto) 22.2 L, Monocytes (%) ( Auto) 8.2 H, Eosinophils (%) (Auto) 1.6, Basophils (%) (Auto) 0.4, Neutrophils # (Auto) 4.6, Lymphocytes # (Auto) 1.6, Monocytes # (Auto) 0.6, Eosinophils # ( Auto) 0.1, Basophils # (Auto) 0.0, Calcium Level 7.9 L, Aspartate Amino Transf ( AST/SGOT) 13, Alanine Aminotransferase (ALT/SGPT) 17, Alkaline Phosphatase 63, Total Bilirubin 0.5, Total Protein 6.3 L, Albumin 3.5, Total Creatine Kinase 62 Vital Signs Date Time Temp Pulse Resp B/P (MAP) Pulse Ox O2 Delivery O2 Flow Rate FiO2 02/19/17 11:11 96.9 50 16 174/77 (109) 97 Room Air 02/19/17 10:25 4.0 I&O- Last 24 Hours up to 6 AM 02/20/17 06:00 Intake Total 120 ml Balance 120 ml AMAYA ARENAS MD Feb 19, 2017 13:13
[2017-02-19] MEDS ORDERED: NS 1,000 ML IV SCH (13:15)
[2017-02-19 16:00] VITALS: BP 162/72
[2017-02-19 20:00] VITALS: BP 169/75
[2017-02-19] MEDS: QUEtiapine FUMARATE 25 MG TAB PO SCH (21:37)
[2017-02-19] MEDS: SENOKOT S TAB PO SCH (21:37)
[2017-02-19 23:59] VITALS: BP 140/82
[2017-02-20 04:00] VITALS: BP 130/75
[2017-02-20 04:09] LABS: BASO % 0.4 % (0.0-1.0); EOS # 0.1 10^3/uL (0.0-0.50); EOS % 1.6 % (0.0-3.0); IMMATURE GRANULOCYTE % 0.7 % (0-0); LYMPH # 2.4 10^3/uL (1.5-4.5); LYMPH % 27.6 % (24.0-44.0); MEAN CORPUSCULAR HEMOGLOBIN 28.9 pg (27.0-33.0); MEAN CORPUSCULAR VOLUME 87.7 fl (80.0-96.0); MONO # 0.7 10^3/uL (0.0-0.8); MONO % 8.2 % (0.0-5.0); NEUTROPHILS # 5.2 10^3/uL (1.8-7.7); NEUTROPHILS % 61.5 % (36.0-66.0); PLATELET COUNT, AUTOMATED 198 10^3/uL (150-450); RED CELL DISTRIBUTION WIDTH 12.8 % (11.5-14.5); WHITE BLOOD COUNT 8.5 10^3/uL (4.0-10.0)
[2017-02-20 04:27] LABS: ALBUMIN 3.3 GM/DL (3.2-5.2); ALBUMIN/GLOBULIN RATIO 1.1 (1.00-1.93); BILIRUBIN,TOTAL 0.5 MG/DL (0.2-1.0); CALCIUM LEVEL 8.4 MG/DL (8.8-10.2); CREATININE FOR GFR 1.39 MG/DL (0.70-1.30); GLOMERULAR FILTRATION RATE 51.3 (>35); POTASSIUM SERUM 3.6 MEQ/L (3.5-5.1); TOTAL PROTEIN 6.3 GM/DL (6.4-8.2)
[2017-02-20] MEDS: SLF 3 ML SYR IV SCH ×3 (06:00→22:00)
[2017-02-20] MEDS: LEVOTHYROXINE 75MCG TABLET (0.075MG) PO SCH (06:08)
[2017-02-20 08:05] VITALS: BP 152/78
[2017-02-20] MEDS: ATORVASTATIN 20 MG TAB PO SCH (08:08)
[2017-02-20] MEDS: HALOPERIDOL 0.5 MG TAB PO SCH ×2 (08:08→20:01)
[2017-02-20] MEDS: VITAMIN D 1,000 INTERNATIONAL UNITS TABLET PO SCH (08:08)
[2017-02-20] MEDS: ASPIRIN 81 MG ENTERIC TAB PO SCH (08:09)
[2017-02-20] MEDS: VENLAFAXINE **XR** 75MG CAPSULE PO SCH (08:09)
[2017-02-20] MEDS: SENOKOT S TAB PO SCH ×2 (08:09→20:00)
[2017-02-20] MEDS ORDERED: MOM 30ML SUSPENSION UDC PO PRN (09:00)
--- NOTE | 2017-02-20 11:21 | ECGEPIP ---
Stationary ECG Study [facility] Test Date: 2017-02-19 Pat Name: REINALDO MORE Department: Room: [place] [address] Gender: M [employer]: STELLA : [id number] Requested By: KELBY Goodrich Order Number: [id number] Reading MD: Kelby Mchugh Measurements Intervals [place] Rate: 56 P: 28 AL: 116 QRS: -24 QRSD: 97 T: 17 QT: 450 QTc: 436 Interpretive Statements SINUS BRADYCARDIA BORDERLINE LEFT AXIS DEVIATION MINIMAL VOLTAGE CRITERIA FOR LVH, CONSIDER NORMAL VARIANT Decreased heart rate compared with 02/06/2017. Electronically Signed On 02-20-2017 11:21:29 EST by Kelby Mchugh
[2017-02-20 11:57] VITALS: BP 147/61
[2017-02-20 15:10] VITALS: BP 188/60
--- NOTE | 2017-02-20 15:57 | IPNPDOC ---
Text Note Date of Service The patient was seen on 02/20/17. NOTE Subjective: Patient feels well. Denies any complaints. Agitation has improved. Discussed with the daughter at bedside who is adamant about having the patient go back to assisted living. She notes that the patient has a very strong nursing as well as ancillary staff services. She understands that he has significant dementia and is oriented to person only, however states that the patient's has been very functional at the assisted living. She has been offered options about placement versus subacute rehabilitation however is refusing. She also notes that a customer retention representative from [facility] will be coming tomorrow to evaluate the patient for possible reestablishment in the assisted living. Daughter understands that the patient may have additional episodes of syncope and even falls, however states she would like to attempt to transition the patient back to assisted living and if the patient is readmitted, and fails to progress, she will consider placement. Objective: Vitals: (see below) General: No acute distress, laying comfortably in bed. HEENT: Moist mucous membranes. Neck: No JVD or lymphadenopathy Cardiac: RRR, No murmurs Pulm: Clear to auscultation b/l. No wheezing, rhonchi Abd: NT/ND + BS Ext: No edema or cyanosis Alert and oriented to person only Labs (see below) Assessment/Plan 1. Syncope likely vasovagal while straining to have a bowel movement. Patient had refused to wear his telemetry. His heart rate has been consistently greater than 60. Recent echocardiogram (above). No recurrent episodes. EKG with no acute ST changes. 2. Delirium with underlying dementia- significantly improved. Appreciate neurology input. Continue Haldol, Seroquel. Will need outpatient follow-up with neurology. 3. Hypernatremia status post IV fluids. Secondary to decreased by mouth intake over appetite is improving. 4. TIA - symptoms have resolved. MRI brain negative for CVA. Continue aspirin and statin. Appreciate neurology input. 5. Hypertension continue amlodipine 6. History of hemorrhagic CVA 3 years ago 7. CK D stage III. Baseline creatinine 1.5-1.8. Stable. Status post IV fluids. 8. Hyperthyroidism continue Synthroid 9. History of depression and anxiety continue home meds DVT prophylaxis SCDs VS,Fishbone, I+O VS, Fishbone, I+O Laboratory Tests 02/20/17 03:54 Red Blood Count 4.46, Mean Corpuscular Volume 87.7, Mean Corpuscular Hemoglobin 28.9, Mean Corpuscular Hemoglobin Concent 33.0, Red Cell Distribution Width 12.8 , Neutrophils (%) (Auto) 61.5, Lymphocytes (%) (Auto) 27.6, Monocytes (%) (Auto ) 8.2 H, Eosinophils (%) (Auto) 1.6, Basophils (%) (Auto) 0.4, Neutrophils # ( Auto) 5.2, Lymphocytes # (Auto) 2.4, Monocytes # (Auto) 0.7, Eosinophils # (Auto ) 0.1, Basophils # (Auto) 0.0, Calcium Level 8.4 L, Aspartate Amino Transf (AST/ SGOT) 11, Alanine Aminotransferase (ALT/SGPT) 15, Alkaline Phosphatase 64, Total Bilirubin 0.5, Total Protein 6.3 L, Albumin 3.3 Vital Signs Date Time Temp Pulse Resp B/P (MAP) Pulse Ox O2 Delivery O2 Flow Rate FiO2 02/20/17 15:34 Room Air 02/20/17 15:10 97.6 72 20 188/60 (102) 99 02/19/17 10:25 4.0 I&O- Last 24 Hours up to 6 AM 02/21/17 06:00 Intake Total 440 ml Output Total 250 ml Balance 190 ml MITUL ELIAS MD Feb 20, 2017 15:57
[2017-02-20] MEDS: QUEtiapine FUMARATE 25 MG TAB PO SCH (20:00)
[2017-02-20 22:00] VITALS: BP 182/86
[2017-02-21 06:00] VITALS: BP 154/84
[2017-02-21] MEDS: LEVOTHYROXINE 75MCG TABLET (0.075MG) PO SCH (06:17)
[2017-02-21] MEDS: SLF 3 ML SYR IV SCH ×3 (06:18→21:22)
[2017-02-21] MEDS: SENOKOT S TAB PO SCH ×3 (08:56→21:21)
[2017-02-21] MEDS: HALOPERIDOL 0.5 MG TAB PO SCH ×3 (08:56→21:21)
[2017-02-21] MEDS: VENLAFAXINE **XR** 75MG CAPSULE PO SCH (08:56)
[2017-02-21] MEDS: ATORVASTATIN 20 MG TAB PO SCH (08:56)
[2017-02-21] MEDS: VITAMIN D 1,000 INTERNATIONAL UNITS TABLET PO SCH (08:56)
[2017-02-21] MEDS: ASPIRIN 81 MG ENTERIC TAB PO SCH (08:56)
[2017-02-21 09:36] LABS: PLATELET COUNT, AUTOMATED 210 10^3/uL (150-450); RED CELL DISTRIBUTION WIDTH 12.8 % (11.5-14.5); WHITE BLOOD COUNT 7.4 10^3/uL (4.0-10.0)
[2017-02-21 10:00] LABS: CALCIUM LEVEL 8.5 MG/DL (8.8-10.2); CREATININE FOR GFR 1.52 MG/DL (0.70-1.30); GLOMERULAR FILTRATION RATE 46.3 (>35); POTASSIUM SERUM 3.5 MEQ/L (3.5-5.1)
[2017-02-21 14:00] VITALS: BP 134/71
--- NOTE | 2017-02-21 14:35 | IPNPDOC ---
Text Note Date of Service The patient was seen on 02/21/17. NOTE Subjective: Patient feels well. Denies any complaints. Objective: Vitals: (see below) General: No acute distress, laying comfortably in bed. HEENT: Moist mucous membranes. Neck: No JVD or lymphadenopathy Cardiac: RRR, No murmurs Pulm: Clear to auscultation b/l. No wheezing, rhonchi Abd: NT/ND + BS Ext: No edema or cyanosis Alert and oriented to person only Labs (see below) Images: Echocardiogram 02/2017 IMPRESSION: 1. Technically limited study due to poor acoustic window. 2. Normal global left ventricular systolic function. There were features of left ventricular diastolic dysfunction, grade 1. 3. Aortic valve sclerosis without stenosis or aortic regurgitation. 4. Mild mitral regurgitation. 5. Mild to moderate tricuspid regurgitation with mild pulmonary hypertension. 6. Trace pericardial effusion. Assessment/Plan 1. Syncope, resolved. likely vasovagal while straining to have a bowel movement Recent echocardiogram (above). No recurrent episodes. EKG with no acute ST changes. 2. Delirium with underlying dementia- significantly improved. Appreciate neurology input. Continue Haldol, Seroquel. Will need outpatient follow-up with neurology. 3. Hypernatremia status post IV fluids. Secondary to decreased by mouth intake over appetite is improving. 4. TIA - symptoms have resolved. MRI brain negative for CVA. Continue aspirin and statin. Appreciate neurology input. 5. Hypertension continue amlodipine 6. History of hemorrhagic CVA 3 years ago 7. CK D stage III. Baseline creatinine 1.5-1.8. Stable. Status post IV fluids. 8. Hyperthyroidism continue Synthroid 9. History of depression and anxiety continue home meds DVT prophylaxis SCDs Pending Angelique evaluation. VS,Fishbone, I+O VS, Fishbone, I+O Laboratory Tests 02/21/17 09:29 Red Blood Count 4.51, Mean Corpuscular Volume 88.0, Mean Corpuscular Hemoglobin 29.0, Mean Corpuscular Hemoglobin Concent 33.0, Red Cell Distribution Width 12.8 , Calcium Level 8.5 L Vital Signs Date Time Temp Pulse Resp B/P (MAP) Pulse Ox O2 Delivery O2 Flow Rate FiO2 02/21/17 08:56 67 154/84 02/21/17 06:00 97.2 18 98 Room Air 02/19/17 10:25 4.0 I&O- Last 24 Hours up to 6 AM 02/22/17 06:00 Intake Total 360 ml Balance 360 ml MITUL ELIAS MD Feb 21, 2017 14:35
[2017-02-21] MEDS: QUEtiapine FUMARATE 25 MG TAB PO SCH ×2 (21:00→21:21)
[2017-02-21 22:00] VITALS: BP 153/63
[2017-02-21] MEDS ORDERED: HALOPERIDOL 5 MG/ML VIAL (J1630) IM ONE (23:30)
[2017-02-22 06:00] VITALS: BP 155/72
[2017-02-22] MEDS: SLF 3 ML SYR IV SCH ×3 (06:10→22:00)
[2017-02-22] MEDS: LEVOTHYROXINE 75MCG TABLET (0.075MG) PO SCH (06:11)
[2017-02-22 06:44] LABS: MEAN CORPUSCULAR HEMOGLOBIN 28.5 pg (27.0-33.0); MEAN CORPUSCULAR VOLUME 86.5 fl (80.0-96.0); PLATELET COUNT, AUTOMATED 212 10^3/uL (150-450); RED CELL DISTRIBUTION WIDTH 12.9 % (11.5-14.5)
[2017-02-22] MEDS: ASPIRIN 81 MG ENTERIC TAB PO SCH (09:00)
[2017-02-22] MEDS: SENOKOT S TAB PO SCH ×2 (09:00→20:33)
[2017-02-22] MEDS: ATORVASTATIN 20 MG TAB PO SCH (09:38)
[2017-02-22] MEDS: HALOPERIDOL 0.5 MG TAB PO SCH (09:38)
[2017-02-22] MEDS: VENLAFAXINE **XR** 75MG CAPSULE PO SCH (09:38)
[2017-02-22] MEDS: VITAMIN D 1,000 INTERNATIONAL UNITS TABLET PO SCH (09:38)
[2017-02-22 14:00] VITALS: BP 160/75
--- NOTE | 2017-02-22 14:07 | IPNPDOC ---
Text Note Date of Service The patient was seen on 02/22/17. NOTE Subjective: Patient feels well. Denies any complaints. Objective: Vitals: (see below) General: No acute distress, laying comfortably in bed. HEENT: Moist mucous membranes. Neck: No JVD or lymphadenopathy Cardiac: RRR, No murmurs Pulm: Clear to auscultation b/l. No wheezing, rhonchi Abd: NT/ND + BS Ext: No edema or cyanosis Alert and oriented to person only Labs (see below) Images: Echocardiogram 02/2017 IMPRESSION: 1. Technically limited study due to poor acoustic window. 2. Normal global left ventricular systolic function. There were features of left ventricular diastolic dysfunction, grade 1. 3. Aortic valve sclerosis without stenosis or aortic regurgitation. 4. Mild mitral regurgitation. 5. Mild to moderate tricuspid regurgitation with mild pulmonary hypertension. 6. Trace pericardial effusion. Assessment/Plan 1. Syncope, resolved. likely vasovagal while straining to have a bowel movement Recent echocardiogram (above). No recurrent episodes. EKG with no acute ST changes. 2. Delirium with underlying dementia- significantly improved. Appreciate neurology input. Continue Haldol, Seroquel; family would like to attempt to wean off haldol - will discuss with Dr. Cody. Will need outpatient follow-up with neurology. 3. Hypernatremia status post IV fluids. Secondary to decreased by mouth intake over appetite is improving. 4. TIA - symptoms have resolved. MRI brain negative for CVA. Continue aspirin and statin. Appreciate neurology input. 5. Hypertension continue amlodipine 6. History of hemorrhagic CVA 3 years ago 7. CK D stage III. Baseline creatinine 1.5-1.8. Stable. Status post IV fluids. 8. Hyperthyroidism continue Synthroid 9. History of depression and anxiety continue home meds DVT prophylaxis SCDs Angelique evaluated patient - not a candidate to return. Pending subacute rehab vs placement. VS,Fishbone, I+O VS, Fishbone, I+O Laboratory Tests 02/22/17 06:29 Red Blood Count 4.66, Mean Corpuscular Volume 86.5, Mean Corpuscular Hemoglobin 28.5, Mean Corpuscular Hemoglobin Concent 33.0, Red Cell Distribution Width 12.9 Vital Signs Date Time Temp Pulse Resp B/P (MAP) Pulse Ox O2 Delivery O2 Flow Rate FiO2 02/22/17 09:40 66 168/76 02/22/17 09:30 Room Air 02/22/17 06:00 98.5 16 96 02/19/17 10:25 4.0 I&O- Last 24 Hours up to 6 AM 02/23/17 06:00 Intake Total 220 ml Balance 220 ml MITUL ELIAS MD Feb 22, 2017 14:07
[2017-02-22 15:48] LABS: CALCIUM LEVEL 8.9 MG/DL (8.8-10.2); CREATININE FOR GFR 1.45 MG/DL (0.70-1.30); GLOMERULAR FILTRATION RATE 48.9 (>35); POTASSIUM SERUM 3.7 MEQ/L (3.5-5.1)
[2017-02-22 20:00] VITALS: BP 170/80
[2017-02-22] MEDS: QUEtiapine FUMARATE 25 MG TAB PO SCH (20:33)
[2017-02-23] MEDS: LEVOTHYROXINE 75MCG TABLET (0.075MG) PO SCH (05:48)
[2017-02-23] MEDS: SLF 3 ML SYR IV SCH (05:49)
[2017-02-23 06:00] VITALS: BP 143/75
[2017-02-23 06:13] LABS: MEAN CORPUSCULAR HEMOGLOBIN 28.6 pg (27.0-33.0); MEAN CORPUSCULAR VOLUME 86.6 fl (80.0-96.0); PLATELET COUNT, AUTOMATED 213 10^3/uL (150-450); RED CELL DISTRIBUTION WIDTH 12.8 % (11.5-14.5); WHITE BLOOD COUNT 9.2 10^3/uL (4.0-10.0)
[2017-02-23 06:40] LABS: CALCIUM LEVEL 8.6 MG/DL (8.8-10.2); CREATININE FOR GFR 1.49 MG/DL (0.70-1.30); GLOMERULAR FILTRATION RATE 47.4 (>35); POTASSIUM SERUM 3.5 MEQ/L (3.5-5.1)
[2017-02-23] MEDS: ASPIRIN 81 MG ENTERIC TAB PO SCH (10:08)
[2017-02-23] MEDS: SENOKOT S TAB PO SCH ×2 (10:08→20:31)
[2017-02-23] MEDS: QUEtiapine FUMARATE 25 MG TAB PO SCH ×2 (10:11→20:31)
[2017-02-23] MEDS: VITAMIN D 1,000 INTERNATIONAL UNITS TABLET PO SCH (10:12)
[2017-02-23] MEDS: ATORVASTATIN 20 MG TAB PO SCH (10:12)
[2017-02-23] MEDS: VENLAFAXINE **XR** 75MG CAPSULE PO SCH (10:12)
[2017-02-23 14:00] VITALS: BP 122/71
--- NOTE | 2017-02-23 15:08 | IPNPDOC ---
Text Note Date of Service The patient was seen on 02/23/17. NOTE Subjective: Patient feels well. Denies any complaints. Objective: Vitals: (see below) General: No acute distress, laying comfortably in bed. HEENT: Moist mucous membranes. Neck: No JVD or lymphadenopathy Cardiac: RRR, No murmurs Pulm: Clear to auscultation b/l. No wheezing, rhonchi Abd: NT/ND + BS Ext: No edema or cyanosis Alert and oriented to person only Labs (see below) Images: Echocardiogram 02/2017 IMPRESSION: 1. Technically limited study due to poor acoustic window. 2. Normal global left ventricular systolic function. There were features of left ventricular diastolic dysfunction, grade 1. 3. Aortic valve sclerosis without stenosis or aortic regurgitation. 4. Mild mitral regurgitation. 5. Mild to moderate tricuspid regurgitation with mild pulmonary hypertension. 6. Trace pericardial effusion. Assessment/Plan 1. Syncope, resolved. likely vasovagal while straining to have a bowel movement Recent echocardiogram (above). No recurrent episodes. EKG with no acute ST changes. 2. Delirium with underlying dementia- significantly improved. Appreciate neurology input.s/p Haldol. Seroquel increased to bid; family would like to attempt to wean off haldol. D/c Sitter. Will need outpatient follow-up with neurology. 3. Hypernatremia status post IV fluids. Secondary to decreased by mouth intake over appetite is improving. 4. TIA - symptoms have resolved. MRI brain negative for CVA. Continue aspirin and statin. Appreciate neurology input. 5. Hypertension continue amlodipine 6. History of hemorrhagic CVA 3 years ago 7. CK D stage III. Baseline creatinine 1.5-1.8. Stable. Status post IV fluids. 8. Hyperthyroidism continue Synthroid 9. History of depression and anxiety continue home meds DVT prophylaxis SCDs Angelique evaluated patient - not a candidate to return. Pending subacute rehab vs placement. VS,Fishbone, I+O VS, Fishbone, I+O Laboratory Tests 02/23/17 05:53 Red Blood Count 4.79, Mean Corpuscular Volume 86.6, Mean Corpuscular Hemoglobin 28.6, Mean Corpuscular Hemoglobin Concent 33.0, Red Cell Distribution Width 12.8 , Calcium Level 8.6 L Vital Signs Date Time Temp Pulse Resp B/P (MAP) Pulse Ox O2 Delivery O2 Flow Rate FiO2 02/23/17 10:11 72 121/59 02/23/17 10:00 Room Air 02/23/17 06:00 99.2 16 96 02/19/17 10:25 4.0 I&O- Last 24 Hours up to 6 AM 02/24/17 06:00 Intake Total 400 ml Output Total 0 ml Balance 400 ml MITUL ELIAS MD Feb 23, 2017 15:08
[2017-02-23 22:00] VITALS: BP 155/74
[2017-02-24] MEDS: ACETAMINOPHEN TAB 650MG DOSE (2X325MG) PO PRN ×2 (03:58→20:13)
[2017-02-24] MEDS: LEVOTHYROXINE 75MCG TABLET (0.075MG) PO SCH (05:31)
[2017-02-24 05:46] LABS: MEAN CORPUSCULAR HGB CONC 33.4 g/dl (32.0-36.5); MEAN CORPUSCULAR VOLUME 86.7 fl (80.0-96.0); PLATELET COUNT, AUTOMATED 201 10^3/uL (150-450); RED CELL DISTRIBUTION WIDTH 12.9 % (11.5-14.5)
[2017-02-24 06:00] VITALS: BP 159/70
[2017-02-24 06:11] LABS: CALCIUM LEVEL 8.7 MG/DL (8.8-10.2); CREATININE FOR GFR 1.38 MG/DL (0.70-1.30); GLOMERULAR FILTRATION RATE 51.8 (>35); POTASSIUM SERUM 3.8 MEQ/L (3.5-5.1)
[2017-02-24] MEDS: ASPIRIN 81 MG ENTERIC TAB PO SCH (10:04)
[2017-02-24] MEDS: SENOKOT S TAB PO SCH ×2 (10:04→20:13)
[2017-02-24] MEDS: VITAMIN D 1,000 INTERNATIONAL UNITS TABLET PO SCH (10:04)
[2017-02-24] MEDS: QUEtiapine FUMARATE 25 MG TAB PO SCH ×2 (10:05→20:13)
[2017-02-24] MEDS: VENLAFAXINE **XR** 75MG CAPSULE PO SCH (10:05)
[2017-02-24] MEDS: ATORVASTATIN 20 MG TAB PO SCH (10:05)
--- NOTE | 2017-02-24 11:04 | IPNPDOC ---
Text Note Date of Service The patient was seen on 02/24/17. NOTE Subjective: Patient feels well. Denies any complaints. Objective: Vitals: (see below) General: No acute distress, laying comfortably in bed. HEENT: Moist mucous membranes. Neck: No JVD or lymphadenopathy Cardiac: RRR, No murmurs Pulm: Clear to auscultation b/l. No wheezing, rhonchi Abd: NT/ND + BS Ext: No edema or cyanosis Alert and oriented to person only Labs (see below) Images: Echocardiogram 02/2017 IMPRESSION: 1. Technically limited study due to poor acoustic window. 2. Normal global left ventricular systolic function. There were features of left ventricular diastolic dysfunction, grade 1. 3. Aortic valve sclerosis without stenosis or aortic regurgitation. 4. Mild mitral regurgitation. 5. Mild to moderate tricuspid regurgitation with mild pulmonary hypertension. 6. Trace pericardial effusion. Assessment/Plan 1. Syncope, resolved. likely vasovagal while straining to have a bowel movement Recent echocardiogram (above). No recurrent episodes. EKG with no acute ST changes. 2. Delirium with underlying dementia- significantly improved. Appreciate neurology input.s/p Haldol. Seroquel increased to bid; family would like to attempt to wean off haldol. D/c Sitter. Will need outpatient follow-up with neurology. 3. Hypernatremia status post IV fluids. Secondary to decreased by mouth intake over appetite is improving. 4. TIA - symptoms have resolved. MRI brain negative for CVA. Continue aspirin and statin. Appreciate neurology input. 5. Hypertension continue amlodipine 6. History of hemorrhagic CVA 3 years ago 7. CK D stage III. Baseline creatinine 1.5-1.8. Stable. Status post IV fluids. 8. Hyperthyroidism continue Synthroid 9. History of depression and anxiety continue home meds DVT prophylaxis SCDs Angelique evaluated patient - not a candidate to return. Pending subacute rehab vs placement. VS,Fishbone, I+O VS, Fishbone, I+O Laboratory Tests 02/24/17 05:29 Red Blood Count 4.45, Mean Corpuscular Volume 86.7, Mean Corpuscular Hemoglobin 29.0, Mean Corpuscular Hemoglobin Concent 33.4, Red Cell Distribution Width 12.9 , Calcium Level 8.7 L Vital Signs Date Time Temp Pulse Resp B/P (MAP) Pulse Ox O2 Delivery O2 Flow Rate FiO2 02/24/17 10:05 56 159/70 02/24/17 06:00 97.6 18 97 Room Air 02/19/17 10:25 4.0 MITUL ELIAS MD Feb 24, 2017 11:04
[2017-02-24 14:00] VITALS: BP 160/75
[2017-02-24 22:00] VITALS: BP 127/62
[2017-02-25 06:00] VITALS: BP 129/74
[2017-02-25] MEDS: LEVOTHYROXINE 75MCG TABLET (0.075MG) PO SCH (06:16)
[2017-02-25 06:23] LABS: MEAN CORPUSCULAR HEMOGLOBIN 28.4 pg (27.0-33.0); MEAN CORPUSCULAR HGB CONC 32.7 g/dl (32.0-36.5); MEAN CORPUSCULAR VOLUME 86.8 fl (80.0-96.0); PLATELET COUNT, AUTOMATED 201 10^3/uL (150-450); RED CELL DISTRIBUTION WIDTH 12.8 % (11.5-14.5); WHITE BLOOD COUNT 7.8 10^3/uL (4.0-10.0)
[2017-02-25 06:39] LABS: CALCIUM LEVEL 8.2 MG/DL (8.8-10.2); CREATININE FOR GFR 1.56 MG/DL (0.70-1.30); GLOMERULAR FILTRATION RATE 44.9 (>35); POTASSIUM SERUM 3.8 MEQ/L (3.5-5.1)
[2017-02-25] MEDS: VENLAFAXINE **XR** 75MG CAPSULE PO SCH (09:16)
[2017-02-25] MEDS: ASPIRIN 81 MG ENTERIC TAB PO SCH (09:16)
[2017-02-25] MEDS: SENOKOT S TAB PO SCH ×2 (09:17→21:17)
[2017-02-25] MEDS: QUEtiapine FUMARATE 25 MG TAB PO SCH ×2 (09:17→21:17)
[2017-02-25] MEDS: VITAMIN D 1,000 INTERNATIONAL UNITS TABLET PO SCH (09:17)
[2017-02-25] MEDS: ATORVASTATIN 20 MG TAB PO SCH (09:18)
--- NOTE | 2017-02-25 11:36 | IPNPDOC ---
Text Note Date of Service The patient was seen on 02/25/17. NOTE Subjective: Patient feels well. Denies any complaints. Objective: Vitals: (see below) General: No acute distress, laying comfortably in bed. HEENT: Moist mucous membranes. Neck: No JVD or lymphadenopathy Cardiac: RRR, No murmurs Pulm: Clear to auscultation b/l. No wheezing, rhonchi Abd: NT/ND + BS Ext: No edema or cyanosis Alert and oriented to person only Labs (see below) Images: Echocardiogram 02/2017 IMPRESSION: 1. Technically limited study due to poor acoustic window. 2. Normal global left ventricular systolic function. There were features of left ventricular diastolic dysfunction, grade 1. 3. Aortic valve sclerosis without stenosis or aortic regurgitation. 4. Mild mitral regurgitation. 5. Mild to moderate tricuspid regurgitation with mild pulmonary hypertension. 6. Trace pericardial effusion. Assessment/Plan 1. Syncope, resolved. likely vasovagal while straining to have a bowel movement Recent echocardiogram (above). No recurrent episodes. EKG with no acute ST changes. 2. Delirium with underlying dementia- significantly improved. Appreciate neurology input.s/p Haldol. Seroquel increased to bid; family would like to attempt to wean off haldol. D/c Sitter. Will need outpatient follow-up with neurology. 3. Hypernatremia status post IV fluids. Secondary to decreased by mouth intake over appetite is improving. 4. TIA - symptoms have resolved. MRI brain negative for CVA. Continue aspirin and statin. Appreciate neurology input. 5. Hypertension continue amlodipine 6. History of hemorrhagic CVA 3 years ago 7. CK D stage III. Baseline creatinine 1.5-1.8. Stable. Status post IV fluids. 8. Hyperthyroidism continue Synthroid 9. History of depression and anxiety continue home meds DVT prophylaxis SCDs Angelique evaluated patient - not a candidate to return. Pending subacute rehab vs placement. VS,Fishbone, I+O VS, Fishbone, I+O Laboratory Tests 02/25/17 05:50 Red Blood Count 4.55, Mean Corpuscular Volume 86.8, Mean Corpuscular Hemoglobin 28.4, Mean Corpuscular Hemoglobin Concent 32.7, Red Cell Distribution Width 12.8 , Calcium Level 8.2 L Vital Signs Date Time Temp Pulse Resp B/P (MAP) Pulse Ox O2 Delivery O2 Flow Rate FiO2 02/25/17 09:17 67 129/74 02/25/17 06:00 98.0 18 96 02/24/17 21:00 Room Air 02/19/17 10:25 4.0 MITUL ELIAS MD Feb 25, 2017 11:36
[2017-02-25 14:00] VITALS: BP 128/60
[2017-02-25 22:00] VITALS: BP 133/63
[2017-02-26 05:52] LABS: MEAN CORPUSCULAR HGB CONC 33.3 g/dl (32.0-36.5); MEAN CORPUSCULAR VOLUME 87.1 fl (80.0-96.0); PLATELET COUNT, AUTOMATED 204 10^3/uL (150-450); RED CELL DISTRIBUTION WIDTH 12.9 % (11.5-14.5); WHITE BLOOD COUNT 7.8 10^3/uL (4.0-10.0)
[2017-02-26 06:00] VITALS: BP 121/68
[2017-02-26 06:14] LABS: CALCIUM LEVEL 8.2 MG/DL (8.8-10.2); CREATININE FOR GFR 1.38 MG/DL (0.70-1.30); GLOMERULAR FILTRATION RATE 51.8 (>35); POTASSIUM SERUM 3.8 MEQ/L (3.5-5.1)
[2017-02-26] MEDS: LEVOTHYROXINE 75MCG TABLET (0.075MG) PO SCH (06:59)
[2017-02-26] MEDS: VENLAFAXINE **XR** 75MG CAPSULE PO SCH (08:57)
[2017-02-26] MEDS: SENOKOT S TAB PO SCH ×2 (08:57→20:30)
[2017-02-26] MEDS: ATORVASTATIN 20 MG TAB PO SCH (08:57)
[2017-02-26] MEDS: ASPIRIN 81 MG ENTERIC TAB PO SCH (08:57)
[2017-02-26] MEDS: VITAMIN D 1,000 INTERNATIONAL UNITS TABLET PO SCH (08:57)
[2017-02-26] MEDS: QUEtiapine FUMARATE 25 MG TAB PO SCH ×2 (08:57→20:29)
[2017-02-26 14:00] VITALS: BP 144/70
[2017-02-26] MEDS: ACETAMINOPHEN TAB 650MG DOSE (2X325MG) PO PRN (20:29)
[2017-02-27 06:00] VITALS: BP 166/78
[2017-02-27] MEDS: LEVOTHYROXINE 75MCG TABLET (0.075MG) PO SCH (06:29)
[2017-02-27 06:41] LABS: MEAN CORPUSCULAR HEMOGLOBIN 28.8 pg (27.0-33.0); MEAN CORPUSCULAR HGB CONC 33.1 g/dl (32.0-36.5); PLATELET COUNT, AUTOMATED 204 10^3/uL (150-450); WHITE BLOOD COUNT 8.5 10^3/uL (4.0-10.0)
[2017-02-27 06:53] LABS: CALCIUM LEVEL 8.7 MG/DL (8.8-10.2); CREATININE FOR GFR 1.44 MG/DL (0.70-1.30); GLOMERULAR FILTRATION RATE 49.3 (>35); POTASSIUM SERUM 3.9 MEQ/L (3.5-5.1)
[2017-02-27] MEDS: SENOKOT S TAB PO SCH ×2 (09:08→20:31)
[2017-02-27] MEDS: VENLAFAXINE **XR** 75MG CAPSULE PO SCH (09:09)
[2017-02-27] MEDS: QUEtiapine FUMARATE 25 MG TAB PO SCH ×2 (09:09→20:31)
[2017-02-27] MEDS: VITAMIN D 1,000 INTERNATIONAL UNITS TABLET PO SCH (09:09)
[2017-02-27] MEDS: ASPIRIN 81 MG ENTERIC TAB PO SCH (09:09)
[2017-02-27] MEDS: ATORVASTATIN 20 MG TAB PO SCH (09:09)
[2017-02-27] MEDS: ACETAMINOPHEN TAB 650MG DOSE (2X325MG) PO PRN (20:32)
[2017-02-28] MEDS: LEVOTHYROXINE 75MCG TABLET (0.075MG) PO SCH (05:33)
[2017-02-28] MEDS: VITAMIN D 1,000 INTERNATIONAL UNITS TABLET PO SCH (09:41)
[2017-02-28] MEDS: QUEtiapine FUMARATE 25 MG TAB PO SCH ×2 (09:41→20:38)
[2017-02-28] MEDS: SENOKOT S TAB PO SCH ×2 (09:43→20:38)
[2017-02-28] MEDS: ATORVASTATIN 20 MG TAB PO SCH (09:43)
[2017-02-28] MEDS: VENLAFAXINE **XR** 75MG CAPSULE PO SCH (09:43)
[2017-02-28] MEDS: ASPIRIN 81 MG ENTERIC TAB PO SCH (09:43)
[2017-02-28 14:00] VITALS: BP 155/72
[2017-03-01 06:00] VITALS: BP 160/70
[2017-03-01] MEDS: LEVOTHYROXINE 75MCG TABLET (0.075MG) PO SCH (06:11)
[2017-03-01] MEDS ORDERED: AMLO25TA PO (08:43)
[2017-03-01] MEDS ORDERED: ATOR1TAB21 PO (08:43)
[2017-03-01] MEDS ORDERED: QUET1TAB7 PO (08:43)
[2017-03-01] MEDS ORDERED: ASPI81TAEC PO (08:43)
[2017-03-01] MEDS: VENLAFAXINE **XR** 75MG CAPSULE PO SCH (09:18)
[2017-03-01] MEDS: ATORVASTATIN 20 MG TAB PO SCH (09:18)
[2017-03-01] MEDS: QUEtiapine FUMARATE 25 MG TAB PO SCH ×2 (09:18→20:35)
[2017-03-01] MEDS: SENOKOT S TAB PO SCH ×2 (09:18→20:35)
[2017-03-01] MEDS: VITAMIN D 1,000 INTERNATIONAL UNITS TABLET PO SCH (09:18)
[2017-03-01] MEDS: ASPIRIN 81 MG ENTERIC TAB PO SCH (09:18)
[2017-03-02] MEDS: LEVOTHYROXINE 75MCG TABLET (0.075MG) PO SCH (05:53)
[2017-03-02 08:48] VITALS: BP 160/70
[2017-03-02] MEDS: VENLAFAXINE **XR** 75MG CAPSULE PO SCH (08:48)
[2017-03-02] MEDS: ATORVASTATIN 20 MG TAB PO SCH (08:48)
[2017-03-02] MEDS: ASPIRIN 81 MG ENTERIC TAB PO SCH (08:48)
[2017-03-02] MEDS: QUEtiapine FUMARATE 25 MG TAB PO SCH (08:48)
[2017-03-02] MEDS: VITAMIN D 1,000 INTERNATIONAL UNITS TABLET PO SCH (08:48)
[2017-03-02] MEDS: SENOKOT S TAB PO SCH (08:48)
[2017-03-02 08:59] VITALS: BP 175/79
--- NOTE | 2017-03-02 15:50 | DSES ---
DATE OF ADMISSION: 02/06/2017 DATE OF DISCHARGE: 03/02/2017 ATTENDING PHYSICIANS: MD Jesse Arauz MD Yu Sung, DO DICTATED BY: Julia Garcia MD PRIMARY CARE PHYSICIAN: Dr. Cristofer Parks CONSULTING PHYSICIAN: Dr. Cody CONDITION ON DISCHARGE: Stable. FINAL DIAGNOSES: 1. Syncope likely secondary to vasovagal episode. 2. Altered mental status likely secondary to delirium and possibly worsening of dementia. PROCEDURES: None. HISTORY OF PRESENT ILLNESS: Patient is an 86-year-old male with a past medical history of hemorrhagic CVA 3 years prior, dementia, chronic kidney disease (CKD) stage III, hypothyroidism, depression, anxiety, presented from assisted living facility for a left-sided facial droop and left upper extremity weakness. In the emergency room (ER), patient had symptoms that had resolved. Patient received imaging that was negative for any acute CVA. Throughout the hospital course, patient had delirium and had his medications adjusted. Throughout the hospital course, patient also had an episode of syncope and was deemed to be likely secondary to a vasovagal episode when the patient was in bathroom. HOSPITAL COURSE: 1. Syncope likely secondary to vasovagal episode, less likely secondary to cardiac etiology, secondary to bradycardia. Was straining in the bathroom when he passed out. Blood pressure was systolic blood pressure of 90s immediately when checked. However, it is normal at 170s throughout the day and has been normal throughout the hospital course since that point. Patient was placed on telemetry initially and has been subsequently removed. 2. Altered mental status likely secondary to delirium, possibly secondary to worsening dementia. Remains oriented to person only. Neurology has been consulted. We appreciate their input. He can continue with quetiapine and a reduced dose of Haldol. Patient is going to continue with physical therapy. He has been reevaluated for readmission to [facility], however, has not been accepted. He will be going to a subacute rehabilitation center at this point. 3. Status post pain not localized. Had low-grade temperature but nothing was greater than 100.0 degrees Fahrenheit. Lactic acid was negative. Urinalysis (UA) negative. Chest x-ray negative. Patient has never been started on antibiotics. 4. Hyponatremia. Likely secondary to poor oral intake, likely secondary to progressive dementia. Has been advised to increase his oral intake. 5. Transient ischemic attack (TIA). Presented after he had left-sided facial droop and then left upper extremity weakness. Has had full resolution of his symptoms. MRI and MRA of the head was negative. He can continue with aspirin 81 and atorvastatin 20. 6. Hypertension. Continue with amlodipine 2.5 mg daily. He is status post Hydralazine 7. Hemorrhagic CVA 3 years prior. 8. Chronic kidney disease, stage III. Baseline creatinine of approximately 1.5 to 1.8. Mild elevation of creatinine through hospital course, however, has improved. 9. Hypothyroidism. Continue with levothyroxine. 10. Depression/anxiety. Continue with venlafaxine. 11. Deep venous thrombosis (DVT) prophylaxis. Continue with thromboembolism deterrents (TEDs) and sequential. DISCHARGE MEDICATIONS: Patient will be discharged home with the following medication list: - amlodipine 2.5 mg by mouth daily - aspirin 81 mg by mouth daily - atorvastatin 20 mg by mouth daily - quetiapine 25 mg by mouth twice a day - cholecalciferol 1000 units by mouth daily - EpiPen 0.3 mg injection as needed, allergic reaction - hydroxypropyl methylcellulose one drop in each eye nightly - hydroxyzine 10 mg by mouth three times a day as needed, anxiety or agitation - levothyroxine 75 mcg by mouth daily - Systane Ultra one drop in each eye twice a day - venlafaxine 75 mg by mouth daily DISCHARGE INSTRUCTIONS: Patient has been advised to followup with his primary care provider, who is Dr. Cristofer Parks within the next 7 days, as well as Dr. Cody within the next 7 days. He has been advised to remain compliant with treatment plan and medications and return to the emergency room if he experiences any problems. TIME SPENT ON DISCHARGE: Greater than 35 minutes. MTDD
== END 2017-03-02 11:46 | disposition home or self-care (01) | DRG 884 ==
LOC: M ED 12:56 → EDBD 12:56 → M ED INP 16:12 → M PCU 02-07 16:13 → OBSVTOIN 02-08 15:26 → M PCU 02-15 07:05 → M MSPAV 02-17 14:24 → M ICU 02-19 10:57 → M PCU 02-19 23:36 → M MSPAV 02-20 15:06
PROVIDERS: ADMIT Internal Medicine; ATTEND Internal Medicine
DX: F03.91 Unspecified dementia, unspecified severity, with behavioral disturbance (principal); G45.9 Transient cerebral ischemic attack, unspecified; E87.0 Hyperosmolality and hypernatremia; R55 Syncope and collapse; N18.3 Chronic kidney disease, stage 3 (moderate); E03.9 Hypothyroidism, unspecified; F32.9 Major depressive disorder, single episode, unspecified; F41.9 Anxiety disorder, unspecified; Z86.73 Personal history of transient ischemic attack (TIA), and cerebral infarction without residual deficits; Z79.899 Other long term (current) drug therapy; Z91.030 Bee allergy status; Z79.82 Long term (current) use of aspirin

== ENCOUNTER → 2017-09-28 | Outpatient (REF) | payer OTHER ==
[2017-09-28 10:19] LABS: VALPROIC ACID (DEPAKOTE) 17.6 UG/ML (50.0-100.0)
== END ==
DX: F03.90 Unspecified dementia, unspecified severity, without behavioral disturbance, psychotic disturbance, mood disturbance, and anxiety (principal)
CPT/HCPCS: 80164

== ENCOUNTER → 2017-10-02 | Outpatient (REF) | payer OTHER ==
[2017-10-02 11:15] LABS: HEMATOCRIT 44.1 % (42.0-52.0); HEMOGLOBIN 14.5 g/dl (13.5-17.5); MEAN CORPUSCULAR HEMOGLOBIN 28.9 pg (27.0-33.0); MEAN CORPUSCULAR HGB CONC 32.9 g/dl (32.0-36.5); PLATELET COUNT, AUTOMATED 180 10^3/uL (150-450); RED BLOOD COUNT 5.01 10^6/uL (4.30-6.10); RED CELL DISTRIBUTION WIDTH 13.2 % (11.5-14.5); WHITE BLOOD COUNT 7.2 10^3/uL (4.0-10.0)
[2017-10-02 11:50] LABS: ALBUMIN 3.7 GM/DL (3.2-5.2); ALBUMIN/GLOBULIN RATIO 1.12 (1.00-1.93); ALKALINE PHOSPHATASE 77 U/L (45-117); ALT/SGPT 30 U/L (12-78); ANION GAP 8 MEQ/L (8-16); AST/SGOT 20 U/L (7-37); BILIRUBIN,TOTAL 0.8 MG/DL (0.2-1.0); BLOOD UREA NITROGEN 32 MG/DL (7-18); CALCIUM LEVEL 8.7 MG/DL (8.8-10.2); CARBON DIOXIDE LEVEL 30 MEQ/L (21-32); CHLORIDE LEVEL 107 MEQ/L (98-107); CREATININE FOR GFR 1.64 MG/DL (0.70-1.30); GLOMERULAR FILTRATION RATE 42.3 (>35); GLUCOSE, FASTING 138 MG/DL (70-100); POTASSIUM SERUM 3.9 MEQ/L (3.5-5.1); SODIUM LEVEL 145 MEQ/L (136-145)
[2017-10-02 12:01] LABS: MAGNESIUM LEVEL 2.1 MG/DL (1.8-2.4)
== END ==
DX: I10 Essential (primary) hypertension (principal)
CPT/HCPCS: 83735

== ENCOUNTER → 2017-10-04 | Outpatient (REF) | payer MEDICARE, OTHER | DX: E86.0 Dehydration (principal) ==

== ENCOUNTER → 2017-10-05 | Outpatient (REF) | payer MEDICARE, OTHER ==
[2017-10-05 10:17] LABS: HEMATOCRIT 40.6 % (42.0-52.0); HEMOGLOBIN 13.6 g/dl (13.5-17.5); MEAN CORPUSCULAR HEMOGLOBIN 29.2 pg (27.0-33.0); MEAN CORPUSCULAR HGB CONC 33.5 g/dl (32.0-36.5); MEAN CORPUSCULAR VOLUME 87.1 fl (80.0-96.0); PLATELET COUNT, AUTOMATED 146 10^3/uL (150-450); RED BLOOD COUNT 4.66 10^6/uL (4.30-6.10); RED CELL DISTRIBUTION WIDTH 13.2 % (11.5-14.5)
[2017-10-05 11:56] LABS: ANION GAP 7 MEQ/L (8-16); BLOOD UREA NITROGEN 27 MG/DL (7-18); CALCIUM LEVEL 8.6 MG/DL (8.8-10.2); CARBON DIOXIDE LEVEL 30 MEQ/L (21-32); CHLORIDE LEVEL 110 MEQ/L (98-107); CREATININE FOR GFR 1.41 MG/DL (0.70-1.30); GLOMERULAR FILTRATION RATE 50.4 (>35); GLUCOSE, FASTING 115 MG/DL (70-100); POTASSIUM SERUM 3.9 MEQ/L (3.5-5.1); SODIUM LEVEL 147 MEQ/L (136-145)
== END ==
DX: E86.0 Dehydration (principal)
CPT/HCPCS: 80048

== ENCOUNTER → 2017-12-05 | Outpatient (REF) | payer MEDICARE ==
[2017-12-05 10:34] LABS: VALPROIC ACID (DEPAKOTE) < 3.0 UG/ML (50.0-100.0)
== END ==
DX: Z51.81 Encounter for therapeutic drug level monitoring (principal)
CPT/HCPCS: 80164

== ENCOUNTER → 2018-02-05 | Outpatient (REF) | payer MEDICARE ==
[2018-02-05 10:17] LABS: VALPROIC ACID (DEPAKOTE) 11.7 UG/ML (50.0-100.0)
== END ==
DX: Z51.81 Encounter for therapeutic drug level monitoring (principal); Z79.899 Other long term (current) drug therapy
CPT/HCPCS: 80164

== ENCOUNTER → 2018-04-03 | Outpatient (REF) | payer MEDICARE ==
[~2018-04-03] MED LIST changes: +AMLO25TA PO; +ASPI81TAEC PO; +ATOR1TAB21 PO; +QUET1TAB7 PO; +VITA100066 PO
[2018-04-03 10:06] LABS: HEMATOCRIT 45.3 % (42.0-52.0); HEMOGLOBIN 14.3 g/dl (13.5-17.5); MEAN CORPUSCULAR HEMOGLOBIN 28.7 pg (27.0-33.0); MEAN CORPUSCULAR HGB CONC 31.6 g/dl (32.0-36.5); MEAN CORPUSCULAR VOLUME 90.8 fl (80.0-96.0); PLATELET COUNT, AUTOMATED 156 10^3/uL (150-450); RED BLOOD COUNT 4.99 10^6/uL (4.30-6.10); WHITE BLOOD COUNT 7.4 10^3/uL (4.0-10.0)
[2018-04-03 10:28] LABS: ALBUMIN 3.8 GM/DL (3.2-5.2); BILIRUBIN,TOTAL 0.6 MG/DL (0.2-1.0); CALCIUM LEVEL 8.6 MG/DL (8.8-10.2); CREATININE FOR GFR 1.43 MG/DL (0.70-1.30); GLOMERULAR FILTRATION RATE 49.6 (>35); POTASSIUM SERUM 3.9 MEQ/L (3.5-5.1); TOTAL PROTEIN 6.7 GM/DL (6.4-8.2); VALPROIC ACID (DEPAKOTE) 8.6 UG/ML (50.0-100.0)
== END ==
PROVIDERS: ATTEND Internal Medicine
DX: Z51.81 Encounter for therapeutic drug level monitoring (principal); I10 Essential (primary) hypertension

== ENCOUNTER → 2018-08-07 | Outpatient (REF) | payer MEDICARE | PROVIDERS: ATTEND Internal Medicine | DX: I10 Essential (primary) hypertension (principal) ==